=== PATIENT | female | born 1950 | race Caucasian/White ===

== ENCOUNTER → 2016-08-30 | Outpatient (CLI) | payer MEDICARE | LOC: RAD 08:35 | PROVIDERS: ATTEND Physician Assistant | DX: M51.36 Other intervertebral disc degeneration, lumbar region (principal); M48.06 Spinal stenosis, lumbar region | CPT/HCPCS: 72148; 82565 ==

== ENCOUNTER → 2017-06-18 | Outpatient (CLI) | payer MEDICARE ==
--- NOTE | 2017-06-18 15:30 | RADIOLOGY REPORT (SQ) ---
EXAM DESCRIPTION: MRI LUMBAR SPINE WITHOUT COMPLETED DATE/TIME: 06/18/2017 12:22 pm REASON FOR STUDY: PAIN IN RIGHT HIP/LUMBAR DISC DEGENERATION M25.551 PAIN IN RIGHT HIP M51.36 OTHE R INTERVERTEBRAL DISC DEGENERATION, LUMBAR REGION COMPARISON: 2017. TECHNIQUE: Sagittal and Axial imaging includes T1, T2, STIR and gradient echo sequences. Coronal T2/ HASTE imaging. LIMITATIONS: Mild limiting motion artifact. FINDINGS: VISUALIZED UPPER ABDOMEN: Limited evaluation. No acute or suspicious findings suggested. SEGMENTATION: No transitional anatomy. The lowest well-developed disc space is labeled L5-S1. ALIGNMENT: Scoliotic. Minimal grade 1 listhesis at L4-5. VERTEBRAE: Chronic compression fracture at L1, status post kyphoplasty. Post kyphoplasty changes are also suggested at L2. Vertebrae otherwise maintained. BONE MARROW: Low signal presumably related to kypho plasties at L1 and L2 within the vertebrae. No a cute fracture. No suspicious bone lesions. No evidence of marrow replacement. DISC SIGNAL: Multilevel disc disease with diminished signal and height loss. Relative preservation o f the L5-S1 disc. POSTERIOR ELEMENTS: Lower lumbar exuberant facet degenerative overgrowth at L4-5 and L5-S1. No over t pars defect. HARDWARE: None in the spine. CORD AND CONUS: Normal in size and signal intensity. Conus at the appropriate level. SOFT TISSUES: No aortic aneurysm seen. No bulky retroperitoneal adenopathy or mass. No paraspinal mas s or fluid. L1-L2: Broad disc osteophyte complex. Facet arthropathy. Mild-moderate central narrowing. At least moderate bilateral foraminal stenosis. L2-L3: Disc and facet disease with mild -moderate central stenosis. Relatively marked right foramina l narrowing. L3-L4: Broad disc bulge and facet arthropathy. Overall mild -moderate central narrowing with marked right foraminal stenosis. L4-L5: Slight degenerative listhesis. Exuberant facet arthropathy and posterior ligament thickening with severe central stenosis. Up to moderate foraminal narrowing. L5-S1: Facet overgrowth. Central canal relatively patent. Noncritical bilateral foraminal narrowing . LOWER THORACIC: Spondylosis at the visualized levels, incompletely assessed. It appears to be some s purring along the posterior T11 vertebral body with cord contact but no gross mass effect. SACRUM: Visualized upper sacrum intact. OTHER: No other significant findings. IMPRESSION: 1. Multilevel lumbar spondylosis with severe spinal stenosis at L4-5. TECHNICAL DOCUMENTATION: JOB ID: [id number] [employer]- All Rights Reserved
--- NOTE | 2017-06-18 15:34 | RADIOLOGY REPORT (SQ) ---
EXAM DESCRIPTION: MRIRLJ WO COMPLETED DATE/TIME: 06/18/2017 12:22 pm REASON FOR STUDY: PAIN IN RIGHT HIP/LUMBAR DISC DEGENERATION COMPARISON: None. TECHNIQUE: Noncontrast multiplanar MR imaging. Sequences include wide field of view pelvis and focu sed hip of interest. Fat sensitive, water sensitive, and cartilage sensitive sequences. Specific hip of interest: Right LIMITATIONS: None. FINDINGS: MARROW SIGNAL: Normal, no evidence of replacement, occult fracture or suspicious bone lesi on in the visualized lumbar spine, pelvis and proximal femurs. SPECIFIC HIP OF INTEREST: No effusion. Appropriate acetabular coverage. Normal sphericity of the fem oral head. No avascular necrosis or reactive marrow changes. Joint space relatively preserved. Pot ential anterior superior subtle labral tear. Minimal adjacent subchondral cysts in the acetabulum. No paralabral cyst. No regional mass, bursitis or muscle tear. OPPOSITE HIP: Normal. No effusion or other significant finding on limited sequences. REMAINDER OF THE OSSEOUS PELVIS: SI joints normal. Symphasis pubis intact. No Avulsion injury evide nt. INTRA- AND EXTRAPELVIC SOFT TISSUES: No intrapelvic mass or free fluid. Bladder normal. No extrapelv ic mass. No inguinal hernia or adenopathy. IMPRESSION: 1. Minimal suspected degenerative cartilage loss in the right hip with subtle subchondra l cysts. Probable anterior superior mild labral tear.
== END ==
LOC: RAD 10:33
PROVIDERS: ATTEND Physician Assistant
DX: M25.551 Pain in right hip (principal); M51.36 Other intervertebral disc degeneration, lumbar region
CPT/HCPCS: 72148

== ENCOUNTER → 2017-07-04 | Outpatient (CLI) | payer MEDICARE ==
--- NOTE | 2017-07-04 17:02 | RADIOLOGY REPORT (SQ) ---
EXAM DESCRIPTION: CT LUMBAR SPINE WITHOUT COMPLETED DATE/TIME: 07/04/2017 3:21 pm REASON FOR STUDY: M51.16 INTERVERTEBRAL DISC DISORDERS W RADICULOPATHY, LUMBAR REGION M51.16 INTERV ERTEBRAL DISC DISORDERS W RADICULOPATHY, LUMBAR COMPARISON: MRI dated 06/18/2017. TECHNIQUE: Axial images acquired through the lumbar spine without intravenous contrast. Images revi ewed with lung, soft tissue and bone windows. Reconstructed coronal and sagittal MPR images reviewe d. All images stored on PACS. All CT scanners at this facility use dose modulation, iterative reconstruction, and/or weight based d osing when appropriate to reduce radiation dose to as low as reasonably achievable (ALARA). [facility]: Dose Right [facility]: CareDose [facility]: Dose Right [facility]: Teradose 4D [facility]: [employer] RADIATION DOSE: CT Rad equipment meets quality standard of care and radiation dose reduction techniq ues were employed. CTDIvol: 28.3 mGy. DLP: 896 mGy-cm. mGy. LIMITATIONS: None. FINDINGS: SEGMENTATION: Normal. No transitional anatomy. ALIGNMENT: Mild S-shaped curvature. VERTEBRAL BODIES: Stable anterior wedge deformity of the L1 vertebral body. Kyphoplasty cement in th e L1 and L2 vertebral bodies. DISCS: Study limited by lack of intrathecal contrast. T11-T12: Dense calcification extending from the central posterior disc in a cephalad direction behin d the body of T11. Significant spinal stenosis at this level with impingement on the cord. T12-L1: No significant protrusions. No significant stenosis. L1-L2: Disc space narrowing with endplate sclerosis and vacuum change. Central disc protrusion with moderate central canal stenosis. L2-L3: Disc space narrowing with endplate sclerosis and vacuum change. Probable diffuse posterior di sc bulge. Moderate facet arthropathy. Mild spinal stenosis. L3-L4: Disc space narrowing with endplate sclerosis and vacuum change. Diffuse posterior annular dis c bulge. Moderate facet arthropathy. Moderate spinal stenosis. L4-L5: Diffuse posterior annular disc bulge. Severe facet arthropathy. Severe spinal stenosis. L5-S1: Diffuse posterior annular disc bulge. Severe facet arthropathy. Moderate spinal stenosis. PEDICLES, TRANSVERSE PROCESSES: No fractures. No dislocation. No acute findings. FACETS, POSTERIOR ELEMENTS: No fractures. No dislocation. No spinal stenosis. HARDWARE: None in the spine. VISUALIZED RIBS: No fractures. SOFT TISSUES: No significant or acute finding in adjacent soft tissues. OTHER: No other significant finding. IMPRESSION: 1. WEDGE COMPRESSION DEFORMITY OF THE L1 VERTEBRAL BODY. KYPHOPLASTY CEMENT IN THE L1 AND L2 VERTEBR AL BODIES. 2. MULTILEVEL DEGENERATIVE CHANGES DESCRIBED. OF NOTE IS SPINAL STENOSIS AND IMPINGEMENT OF THE D ISTAL CORD AT THE T11 LEVEL. TECHNICAL DOCUMENTATION: JOB ID: [id number] Quality ID # [id number]: Final reports with documentation of one or more dose reduction techniques (e.g., Au tomated exposure control, adjustment of the mA and/or kV according to patient size, use of iterative reconstruction technique) 2010 [employer]- All Rights Reserved Reading location - IP/workstation name: [email or web address]
--- NOTE | 2017-07-05 10:25 | RADIOLOGY REPORT (SQ) ---
EXAM DESCRIPTION: L SPINE W/FLEX/EXT COMPLETED DATE/TIME: 07/04/2017 3:47 pm REASON FOR STUDY: M51.16 INTERVERTEBRAL DISC DISORDERS W RADICULOPATHY, LUMBAR REGION M51.16 INTERV ERTEBRAL DISC DISORDERS W RADICULOPATHY, LUMBAR COMPARISON: None. NUMBER OF VIEWS: Seven views. TECHNIQUE: AP, lateral, obliques, flexion, extension, and sacral radiographic images acquired. LIMITATIONS: None. FINDINGS: There has been prior kyphoplasty at L1-L2. There is a mild convex left lower lumbar scoli osis. Disc space narrowing and osteophyte formation at multiple levels. No instability with flexion and extension. IMPRESSION: NO INSTABILITY ON FLEXION/EXTENSION. TECHNICAL DOCUMENTATION: JOB ID: [id number] [employer]- All Rights Reserved Reading location - IP/workstation name: [email or web address]
== END ==
LOC: RAD 16:21
PROVIDERS: ATTEND Specialist
DX: M54.16 Radiculopathy, lumbar region (principal)
CPT/HCPCS: 72114; 72131

== ENCOUNTER 2018-09-21 09:41 | Emergency (ER) | payer MEDICARE ==
[2018-09-21 10:12] LABS: ABSOLUTE BASOPHILS # (AUTO) 0.1 10^3/uL (0.0-0.2); ABSOLUTE EOSINOPHILS # (AUTO) 1.1 10^3/uL (0.0-0.6); ABSOLUTE LYMPHOCYTES (AUTO) 2.5 10^3/uL (0.5-4.7); ABSOLUTE MONOCYTES (AUTO) 0.8 10^3/uL (0.1-1.4); ABSOLUTE NEUT (AUTO) 6.8 10^3/uL (1.7-8.2); BASOPHILS % (AUTO) 0.6 % (0-2); EOSINOPHILS % (AUTO) 9.8 % (0-6); HEMATOCRIT 40.8 % (36.0-47.0); HEMOGLOBIN 13.2 g/dL (12.0-15.5); LYMPHOCYTES % (AUTO) 22.2 % (13-45); MEAN CORPUSCULAR HEMOGLOBIN 29.7 pg (27.0-33.4); MEAN CORPUSCULAR HGB CONC 32.3 g/dL (32.0-36.0); MEAN CORPUSCULAR VOLUME 92 fl (80-97); MONOCYTES % (AUTO) 6.7 % (3-13); PLATELET COUNT 315 10^3/uL (150-450); RED BLOOD COUNT 4.44 10^6/uL (3.72-5.28); RED CELL DISTRIBUTION WIDTH 13.9 % (11.5-14.0); SEGMENTED NEUTROPHILS % (AUTO) 60.7 % (42-78); TOTAL CELLS COUNTED % (AUTO) 100 %; WHITE BLOOD COUNT 11.2 10^3/uL (4.0-10.5)
[2018-09-21 10:18] LABS: ALANINE AMINOTRANSFERASE 20 U/L (9-52); ALBUMIN 3.8 g/dL (3.5-5.0); ALKALINE PHOSPHATASE 101 U/L (38-126); ANION GAP 11 (5-19); ASPARTATE AMINO TRANSFERASE 25 U/L (14-36); BILIRUBIN,DIRECT 0.4 mg/dL (0.0-0.4); BILIRUBIN,TOTAL 0.4 mg/dL (0.2-1.3); BLOOD UREA NITROGEN 33 mg/dL (7-20); CALCIUM 9.5 mg/dL (8.4-10.2); CARBON DIOXIDE 22 mmol/L (22-30); CHLORIDE 108 mmol/L (98-107); CREATINE KINASE 49 U/L (30-135); GLUCOSE 117 mg/dL (75-110); POTASSIUM 4.5 mmol/L (3.6-5.0); SODIUM 141.4 mmol/L (137-145); TOTAL PROTEIN 6.6 g/dL (6.3-8.2)
[2018-09-21 10:28] LABS: CREATINE KINASE MB 1.82 ng/mL (<4.55)
[2018-09-21 10:29] LABS: TROPONIN I < 0.012 ng/mL
[2018-09-21 10:57] LABS: APPEARANCE,URINE SLIGHTLY-CLOUDY; BILIRUBIN,URINE NEGATIVE (NEGATIVE); COLOR,URINE AMBER; GLUCOSE, URINE NEGATIVE (NEGATIVE); KETONES,URINE TRACE mg/dL (NEGATIVE); LEUKOCYTE ESTERASE,URINE TRACE (NEGATIVE); NITRITE,URINE POSITIVE (NEGATIVE); PROTEIN,URINE NEGATIVE (NEGATIVE); URINE SPECIFIC GRAVITY 1.026; UROBILINOGEN,URINE NEGATIVE mg/dL (<2.0)
[2018-09-21] MEDS ORDERED: NORMAL SALINE 1000 ML 1,000 ML IV ONE ×2 (11:02→12:05)
--- NOTE | 2018-09-21 11:02 | ER Document Report ---
Entered by ABAD GANN SCRIBE 09/21/18 1010 Acting as scribe for:SONIA GLEASON MD ED General - General Chief Complaint: Altered Mental Status Stated Complaint: ALTERED MENTAL STATUS Time Seen by Provider: 09/21/18 09:49 Primary Care Provider: DAY BALL MD [Primary Care Provider] - Follow up as needed Mode of Arrival: Ambulatory Information source: Patient Notes: Patient is a 68 year old female with chronic back pain (on pain management), type 2 diabetes presents to the emergency department via EMS due to altered mental status. According to nurse, patient took her grandson to the dentist when the employees at the dentist's office noticed the patient became lethargic and diaphoretic and proceeded to call EMS. Patient states she remembers taking her grandson to the dentist but does not remember much after that. She states she did not take any of her pain medication or diabetes medication this morning. EMS reports the patient was intermittently lethargic and would occasionally become alert. They proceeded to administer 1mg of narcan IV and a 400mL normal saline after which they state the patient became more alert. Patient's blood pressure was noted to be 86/51. Of note, patient is prescribed 120 tabs of 10 mg of Percocet (QID) and 60 tablets of 40 mg OxyContin (extended release, BID). Patient states she does not take this medication as prescribed and repeatedly states "I only take it as I need it, I don't take it everyday". Patient does fill the prescriptions monthly. TRAVEL OUTSIDE OF THE [place] IN LAST 30 DAYS: No - Related Data Allergies/Adverse Reactions: No Known Allergies Allergy (Unverified 09/21/18 09:48) Past Medical History - General Information source: Patient - Social History Smoking Status: Unknown if Ever Smoked Chew tobacco use (# tins/day): No Family History: Reviewed & Not Pertinent Endocrine Medical History: Reports: Hx Diabetes Mellitus Type 2 Past Surgical History: Reports: Hx Orthopedic Surgery - Lumbar fusion Review of Systems - Review of Systems Constitutional: See HPI EENT: No symptoms reported Cardiovascular: No symptoms reported Respiratory: No symptoms reported Gastrointestinal: No symptoms reported Genitourinary: No symptoms reported Female Genitourinary: No symptoms reported Musculoskeletal: No symptoms reported Hematologic/Lymphatic: No symptoms reported Neurological/Psychological: See HPI -: Yes All other systems reviewed and negative Physical Exam - Vital signs Vitals: Resp Pulse Ox 12 99 09/21/18 09:50 09/21/18 09:50 - Notes Notes: GENERAL: Alert, interacts well. No acute distress. HEAD: Normocephalic, atraumatic. EYES: Pupils equal, round, and reactive to light. Extraocular movements intact. ENT: Oral mucosa moist, tongue midline. NECK: Full range of motion. Supple. Trachea midline. LUNGS: Clear to auscultation bilaterally, no wheezes, rales, or rhonchi. No respiratory distress. HEART: Regular rate and rhythm. No murmurs, gallops, or rubs. ABDOMEN: Soft, non-tender. Non-distended. Bowel sounds present in all 4 quadran ts. No guarding, rigidity, or rebound. EXTREMITIES: Moves all 4 extremities spontaneously. No edema, radial and dorsalis pedis pulses 2/4 bilaterally. No cyanosis. NEUROLOGICAL: Alert and oriented x3. Normal speech. PSYCH: Normal affect, normal mood. SKIN: Warm, dry, normal turgor. No rashes or lesions noted. Course - Re-evaluation Re-evalutation: 09/21/18 11:03 The patient's lab work would suggest that she was somewhat dehydrated. Her BUN was 33. The UA was concentrated with 26 hyaline casts. She did respond to 400 mL but fluid bolus from EMS initially. We will give her additional IV fluids at this time. - Vital Signs Vital signs: Temp Pulse Resp BP Pulse Ox 17 143/102 H 98 09/21/18 10:01 09/21/18 10:01 09/21/18 10:01 - Laboratory Result Diagrams: 09/21/18 09:23 09/21/18 09:23 Laboratory results interpreted by me: 09/21/18 09/21/18 09/21/18 09:23 09:23 10:30 WBC 11.2 H Eosinophils % 9.8 H Absolute Eosinophils 1.1 H Chloride 108 H BUN 33 H Glucose 117 H Urine Ketones TRACE H Urine Nitrite POSITIVE H Ur Leukocyte Esterase TRACE H Discharge - Discharge Clinical Impression: Dehydration Hypotension Qualifiers: Hypotension type: unspecified hypotension type Qualified Code(s): I95.9 - Hypotension, unspecified Altered mental status Qualifiers: Altered mental status type: unspecified Qualified Code(s): R41.82 - Altered mental status, unspecified Condition: Stable Disposition: HOME, SELF-CARE Additional Instructions: Altered Mental Status An altered mental status is a change in the normal functioning of the brain. This alteration of function can range from minor decreased brain function with some forgetfulness and confusion to complete loss of consciousness and coma. There are many possible causes of an altered mental status and include brain injuries such as trauma or strokes, problems with oxygen supply to the brain, fever and infections of the brain and/or elsewhere in the body, metabolic abnor malities such as low or high blood sugar, overdoses or excessive medication ingestion, and mental and psychiatric illnesses. Sometimes the altered mental status resolves and a definite cause is not determined. If a cause for your altered mental status was found, it has likely been corrected. Your evaluation has not shown any condition that requires that you be admitted to the hospital. It is believed that you are safe to leave and return to your home. If you have a return of your symptoms, you should return for re-evaluation. Dehydration Dehydration can result from vomiting or diarrhea, fever, or decreased intake of fluids. If severe, hospitalization and intravenous fluids may be required. Most cases are treated at home with fluids by mouth. For the next 24 hours, drink lots of clear fluids. In mild cases, this can be soda pop or sports drinks. For more severe dehydration, the doctor may recommend special fluids such as Pedialyte or Lytren. Try to get three liters (3 quarts) of fluid per day. If vomiting occurs, continue to drink the fluids frequently (every 15 to 20 minutes), but in small amounts (one or two ounces). Depending on the type of dehydration, the doctor may prescribe antinausea medicine or potassium replacements. Call the doctor or return for re-examination if you become progressively weak, vomit repeatedly, or have other new symptoms. Hypotension Your blood pressure is low. Low blood pressure can make you feel weak, ligh theaded, and even make you pass out. Low blood pressure can be caused by dehydration or blood loss. Problems with the heart, kidneys, or blood vessels can cause hypotension. Certain medications can make your blood pressure abnormally low. Infection can lower blood pressure. In many cases, the person is totally healthy, but for unknown reasons, the blood pressure falls when they stand up. This is called benign orthostatic hypotension. The treatment of low blood pressure depends on the severity of the symptoms, and on the underlying cause. Sometimes it's not possible to identify a cause. At this time, it doesn't appear that the problem is serious enough to require hospitalization. Medicines that could be contributing to the problem can be withheld or reduced in dosage if your doctor approves. Get plenty of fluids. Eat a healthy diet. Be careful to stand up slowly. If you feel suddenly lightheaded or if your vision goes reynolds, sit or lie down at once. Don't drive or operate machinery until the symptoms are under control. Return or call the doctor if you develop fainting or severe dizziness, severe weakness, problems with vision, chest pain, shortness of breath, fever, or confusion. Your altered mental status and low blood pressure was most likely due to being dehydrated. The pain medications you take and your difficulty sleeping at night probably contributed to the altered mental status. You should be sure to get a good night sleep every night, and drink plenty of fluids throughout the day in the evening. You should not try to drive if you do not feel perfectly normal and awake and alert. Follow-up with your doctor if any further problems. RETURN TO THE EMERGENCY ROOM IF ANY NEW OR WORSENING SYMPTOMS. Referrals: DAY BALL MD [Primary Care Provider] - Follow up as needed Scribe Attestation: 09/21/18 11:04 I personally performed the services described in the documentation, reviewed and edited the documentation which was dictated to the scribe in my presence, and it accurately records my words and actions. I personally performed the services described in the documentation, reviewed and edited the documentation which was dictated to the scribe in my presence, and it accurately records my words and actions.
[2018-09-21 11:14] LABS: URINE AMPHETAMINES SCREEN NEGATIVE; URINE BARBITURATES SCREEN NEGATIVE; URINE BENZODIAZEPINES SCREEN UNCONFIRMED POSITIVE; URINE COCAINE SCREEN NEGATIVE; URINE MARIJUANA (THC) SCREEN NEGATIVE; URINE METHADONE SCREEN NEGATIVE; URINE PHENCYCLIDINE SCREEN NEGATIVE
[2018-09-21 13:06] VITALS: BP 113/64
--- NOTE | 2018-09-21 17:45 | EKG REPORT ---
SEVERITY:- NORMAL ECG - SINUS RHYTHM : Confirmed by: Lubna Ellison 21-Sep-2018 17:44:09
== END 2018-09-21 13:28 | disposition home or self-care (01) ==
LOC: ER 09:41
DX: I95.9 Hypotension, unspecified (principal); E86.0 Dehydration; R41.82 Altered mental status, unspecified; E11.9 Type 2 diabetes mellitus without complications; R53.83 Other fatigue; R61 Generalized hyperhidrosis; Z79.899 Other long term (current) drug therapy
CPT/HCPCS: 93005; 99285; 96360; 36415; 82553; 82962; 82550; 85025; 80053; 81001; 84484; 80307; 93010; J7030

== ENCOUNTER → 2020-05-24 | Outpatient (CLI) | payer MEDICARE ==
[~2020-05-24] MED LIST: COVID-19 VACCINE (PFIZER)/PF 30 MCG/0.3 ML VIAL IM ONE; EPINEPHRINE INJ/PF 1 MG/1 ML AMPULE IM PRN
--- OUTSIDE RECORDS SUMMARY | 2020-05-27 10:21 | XMS REPORT ---
:1950 [facility] [address] [place] [address] Care Team Providers Name Role Phone Bony Hudsonchris Walls Primary Care Physician Unavailable DO Thuy Perez Attending Clinician Unavailable DO Thuy Perez Attending Clinician Unavailable MD Joss Farooq Attending Clinician Unavailable MD Joss Farooq Attending Clinician Unavailable DO Thuy Perez Admitting Clinician Unavailable MD Joss Farooq Admitting Clinician Unavailable Allergies, Adverse Reactions, Alerts Allergy Allergy Status Severity Reaction(s) Onset Inactive Treating C omments Name Type Date Date Clinician alendronat Drug Active e1, 2 allergy Forteo3, 4 Drug Active allergy Prolia5, 6 Drug Active allergy Medications Ordered Filled Start Stop Current Ordering Indication Dosage Frequency Signature Comments Components Medication Medication Date Date Medication? Clinician (SIG) Name Name aspirin 81 2019-05 Yes 81mg 81 mg = 1 mg oral 0-12 tab(s), tablet, 10:05: PO, BID, # chewable 00 60 tab(s), 0 Refill(s), Pharmacy: [facility], 149.8, cm, 02/11/20 5:46:00 EDT, Height, 76.9, kg, 02/11/20 5:46:00 EDT, Weight Vitamin D3 2019-05 Yes 1000[iU 1,000 1000 intl 0-12 ] Intl_Unit( units (25 10:05: s) = 1 mcg) oral 00 tab(s), tablet PO, Daily, 0 Refill(s) citalopram 2019-05 Yes 40mg 40 mg = 1 40 mg oral 0-12 tab(s), tablet 10:05: PO, Daily, 00 # 30 tab(s), 0 Refill(s), Pharmacy: [facility], 149.8, cm, 02/11/20 5:46:00 EDT, Height, 76.9, kg, 02/11/20 5:46:00 EDT, Weight metFORMIN 2019-05 Yes 500mg 500 mg = 1 500 mg oral 0-12 tab(s), tablet 10:05: PO, qAM, # 00 30 tab(s), 0 Refill(s), Pharmacy: [facility], 149.8, cm, 02/11/20 5:46:00 EDT, Height, 76.9, kg, 02/11/20 5:46:00 EDT, Weight metoprolol 2019-05 Yes 50mg 50 mg = 1 succinate 0-12 cap(s), 50 mg oral 10:05: PO, QHS, # capsule, 00 30 cap(s), extended 0 release Refill(s), Pharmacy: [facility], 149.8, cm, 02/11/20 5:46:00 EDT, Height, 76.9, kg, 02/11/20 5:46:00 EDT, Weight Tylenol 325 2019-05 Yes 650mg 650 mg = 2 mg oral 0-12 tab(s), tablet 10:05: PO, q4h, 00 Pain, mild (Level 1-2), 0 Refill(s) Pepcid 20 2019-05 Yes 20mg 20 mg = 1 mg oral 0-12 tab(s), tablet 10:05: PO, BID, # 00 60 tab(s), 0 Refill(s), Pharmacy: [facility], 149.8, cm, 02/11/20 5:46:00 EDT, Height, 76.9, kg, 02/11/20 5:46:00 EDT, Weight Centrum 2019-05 Yes 11 1 tab(s), 0-12 PO, Daily, 10:05: 0 00 Refill(s) Lyrica 100 2019-05 Yes 100mg 100 mg = 1 mg oral 0-12 cap(s), capsule 10:05: PO, TID, # 00 90 cap(s), 0 Refill(s), Pharmacy: [facility], 149.8, cm, 02/11/20 5:46:00 EDT, Height, 76.9, kg, 02/11/20 5:46:00 EDT, Weight rOPINIRole 2019-05 Yes .25mg 0.25 mg = 0.25 mg 0-12 1 tab(s), oral tablet 10:05: PO, QHS, # 00 30 tab(s), 0 Refill(s), Pharmacy: [facility], 149.8, cm, 02/11/20 5:46:00 EDT, Height, 76.9, kg, 02/11/20 5:46:00 EDT, Weight oxyCODONE 2019-05 2020- No 10mg 10 mg = 1 10 mg oral 0-12 10-19 tab(s), tablet 10:05: 23:59 PO, q6h, 00 :00 as needed for pain, # 28 tab(s), 0 Refill(s), Pharmacy: [facility], 149.8, cm, 02/11/20 5:46:00 EDT, Height, 76.9, kg, 02/11/20 5:46:00 EDT, Weight gabapentin No 300mg 300 mg = 1 300 mg oral 3-28 cap(s), capsule 13:26: PO, Daily, 00 0 Refill(s) oxyCODONE No 1 to 2 10 mg oral 3-26 tabs, PO, tablet 09:26: q6h, as 00 needed for pain, 0 Refill(s) raNITIdine No 150mg 150 mg = 1 150 mg oral 3-26 tab(s), tablet 09:26: PO, BID, 00 Other: See Comments, PRN Vitamin D3 No 1000[iU 1,000 1000 intl 3-26 ] Internatio units oral 09:23: nal_Unit(s capsule 00 ) = 1 cap(s), PO, Daily metoprolol No 50mg 50 mg = succinate 3-26 0.5 100 mg oral 09:23: tab(s), tablet, 00 PO, QHS extended release [facility] No 11 1 tab(s), vitamin 3-26 PO, Daily 09:22: 00 raNITIdine Yes 1 QD raNITIdine HCl 150 MG -12 HCl 150 MG TABS 00:00: TABS TAKE 00 1 TABLET DAILY. Refills: 0 Start : 4Active Vitamin D Yes Vitamin D 1000 UNIT - 1000 UNIT CAPS 00:00: CAPS 1 00 tab. by mouth daily. Quantity: 30 Refills: 0 Start : 4Active Ocuvite-Lut Yes 1 QD Ocuvite-Jeannine ein Oral -12 tein Oral Capsule 00:00: Capsule 00 TAKE 1 CAPSULE DAILY. Quantity: 90 Refills: 3 Start : 4Active Metoprolol Yes 1 QD Metoprolol Tartrate 07-11 Tartrate 100 MG Oral 00:00: 100 MG Tablet 00 Oral Tablet TAKE 1 TABLET DAILY. Refills: 0 Start : 4Active metformin No 11 1 tab(s), 500 mg oral 7-26 PO, qAM, tablet 23:31: 180 tab(s) 42 citalopram No 11 1 tab(s), 40 mg oral 7-26 PO, Daily, tablet 23:28: 30 tab(s) 15 aspirin 81 No 11 1 tab(s), mg oral 7-26 PO, Daily, tablet 23:27: 30 tab(s) 46 metFORMIN Yes 1 QD metFORMIN HCl - 500 1-17 HCl - 500 MG Oral 00:00: MG Oral Tablet 00 Tablet TAKE 1 TABLET DAILY Quantity: 60 Refills: 0 Start : 9Active Imitrex 20 Yes Mimi Coreas Imitrex 20 MG/ACT 6-18 Jose De Jesus VICTORIA MG/ACT Nasal 00:00: Nasal Solution 00 Solution USE 1 SPRAY INTO ONE NOSTRIL NEEDED FOR MIGRAINE RELIEF, MAY REPEAT ONCE AFTER 2 HOURS. MAX - 40MG/DAY. Quantity: 1 Refills: 0 Mimi Dela Cruz MD Start : 7Active Aspirin 81 Yes 1 QD Aspirin 81 MG TABS 5-18 MG TABS 00:00: TAKE 1 00 TABLET DAILY. Refills: 0 Start : 7Active CeleXA 20 2004-05 Yes CeleXA 20 MG Oral 1-14 MG Oral Tablet 00:00: Tablet 00 take 2 tablets daily Refills: 0 Start : 5Active oxyCODONE Yes oxyCODONE HCl - 10 MG HCl - 10 Oral Tablet MG Oral Tablet Refills: 0 Active Problems Condition Condition Condition Status Onset Resolution Last Treatin g Comments Name Details Category Date Date Treatment Clinician Date Alteration Alteration Problem suspend Pr oblem in comfort: in comfort: ed added pain pain(Confir auto matic (finding) med)1 ally b y system based on initiati o n of the Alterati o n in comfort: Pain beti n of Care. At risk of At risk for Problem suspend P roblem infection infection(C ed ad ded (finding) onfirmed)2 aut omatic ally by system based on initiati o n of the At Risk for Infectio n Plan of Care. Dehydration Dehydration Problem suspend (disorder) (Confirmed) ed At risk for Fall Problem suspend Prob vinny falls risk(Confir ed adde d (finding) med)3 automa tic ally by system based on initiati o n of the Fall Ris k Plan of Care. Impaired Impaired Problem suspend Proble m mobility mobility(Co ed add ed (finding) nfirmed)4 auto matic ally by system based on initiati o n of the Bowel Dysfunct i on Plan of Care. Total Self -care Problem suspend Probl em self-care deficit(Con ed ad ded deficit firmed)5 automat ic (finding) ally b y system based on initiati o n of the Self Car e Deficit Plan of Care. Obesity Obesity Problem Active Disc Disc Problem Active degeneratio degeneratio n, lumbar n, lumbar Encounter Encounter Problem Active for for screening screening colonoscopy colonoscopy Diabetes Diabetes Problem Active mellitus mellitus Hyperlipide Hyperlipide Problem Active jovanna jovanna Benign Benign Problem Active colonic colonic polyp polyp Breast Breast Problem Active cancer cancer History of History of Problem Active breast breast cancer cancer Osteoporosi Osteoporosi Problem Active s without s without current current pathologica pathologica l fracture, l fracture, unspecified unspecified osteoporosi osteoporosi s type s type Hip Hip Problem Active fracture, fracture, left, left, sequela sequela Anemia due Anemia due Problem Active to blood to blood loss loss Hypertensio Hypertensio Problem Active n n Procedures Procedure Date / Time Performed Performing Clinician Devic e IM Nailing Hip (TFN) IPO (Left)1 2020-01-22 12:55:00 IM Nailing Hip (TFN) IPO (Left)1 2020-01-22 12:55:00 Laminectomy Lumbar Bony TP Fusion 2017-07-27 16:08:00 IPO (NA)2 Arthroscopy3 Lumpectomy4 Tonsillectomy Tubal ligation done Procedures not documented Results Test Description Test Time Test Comments Text Results Atomic Results Result Comments POC Glucose 2020-02-11 07:30:00 Test Item Value Reference Range Comments POC Glucose (test code = POC Glucose) Done Charted Whole Blood [id number] 05:43:00 Test Item Value Reference Range Comments Whole Blood Glucose (test code = Whole Blood 93 mg/dL 74- 106 Glucose) WBC,RBC,Hgb,Hct,MCV (MCV),MCH (HCH),MCHC (MCHC),RDW (RDW),Platelet,[id number] 05:32:00 Test Item Value Reference Range Comments WBC (test code = WBC) 6.9 1 4.8-10.8 RBC (test code = RBC) 3.17 1 4.20-5.40 Hgb (test code = Hgb) 9.3 1 12.0-16.0 Hct (test code = Hct) 31.1 % 38.0-47.0 MCV (MCV) (test code = MCV (MCV)) 98.1 fL 80-94 MCH (HCH) (test code = MCH (HCH)) 29.3 pg 27-34 MCHC (MCHC) (test code = MCHC (MCHC)) 29.9 % 31.5-36.0 RDW (RDW) (test code = RDW (RDW)) 19.3 % 11.5-14.5 Platelet (test code = Platelet) 488 1 130-400 MPV (test code = MPV) 9.3 fL 7.4-10.4 BUN,Sodium Lvl,Potassium Lvl,Chloride,CO2,Glucose Lvl,Creatinine,Calcium Lvl,BUN/CR Ratio,Anion Gap,2020-02-11 05:32:00 Test Item Value Reference Range Comments BUN (test code = BUN) 20 mg/dL 9-23 Sodium Lvl (test code = Sodium Lvl) 143 mmol/L 136-145 Potassium Lvl (test code = Potassium Lvl) 4.1 mmol/L 3.4-5. 1 Chloride (test code = Chloride) 108 mmol/L 98-107 CO2 (test code = CO2) 28.0 mmol/L 20-31 Glucose Lvl (test code = Glucose Lvl) 87 mg/dL 74-106 Creatinine (test code = Creatinine) 0.81 mg/dL 0.55-1.02 Calcium Lvl (test code = Calcium Lvl) 9.0 mg/dL 8.7-10.4 BUN/CR Ratio (test code = BUN/CR Ratio) 25 Anion Gap (test code = Anion Gap) 7 4-18 Calc Osmol (test code = Calc Osmol) 287 1 GFR Non (test code = GFR Non >60.00 ) GFR (test code = GFR >60.00 Polish) UA Spec Grav,UA Color,UA Appear,UA Glucose,UA Bili,UA Ketones,UA Blood,UA pH,UA Protein,UA [id number] 17:05:00 Test Item Value Reference Range Comments UA Spec Grav (test code = UA Spec Grav) 1.015 UA Color (test code = UA Color) YELLOW UA Appear (test code = UA Appear) CLEAR UA Glucose (test code = UA Glucose) NEGATIVE UA Bili (test code = UA Bili) NEGATIVE UA Ketones (test code = UA Ketones) NEGATIVE UA Blood (test code = UA Blood) NEGATIVE UA pH (test code = UA pH) 6.5 5.0-9.0 UA Protein (test code = UA Protein) NEGATIVE 0-30 UA Urobilinogen (test code = UA Urobilinogen) 4.0 1 0. 2-1.0 UA Nitrite (test code = UA Nitrite) NEGATIVE UA Leuk Est (test code = UA Leuk Est) NEGATIVE Urine [id number] 17:05:00 Test Item Value Reference Range Comments Urine Culture (test code = Urine Culture) NO GROWTH 2 DAYS Neutro Percent,Lymph Percent,Kane Percent,Eos Percent,Basophil Percent,Neut Absolute,Lymphs [id number] 05:14:00 Test Item Value Reference Range Comments Neutro Percent (test code = Neutro Percent) 58.8 % 34.6 -71.4 Lymph Percent (test code = Lymph Percent) 26.7 % 19.6-5 2.7 Kane Percent (test code = Kane Percent) 10.2 % 2.4-11.8 Eos Percent (test code = Eos Percent) 2.9 % 0-7.8 Basophil Percent (test code = Basophil Percent) 0.5 % 0-1.8 Neut Absolute (test code = Neut Absolute) 5.0 1 1.8-7. 3 Lymphs Absolute (test code = Lymphs Absolute) 2.3 1 1. 5-4.0 Kane Absolute (test code = Kane Absolute) 0.9 1 0.2-1. 0 Eos Absolute (EOSA) (test code = Eos Absolute (EOSA)) 0.3 1 0-0.7 Baso Absolute (BASOA) (test code = Baso Absolute 0.0 1 0.0-0.2 (BASOA)) Hct,[id number] 09:11:00 Test Item Value Reference Range Comments Hct (test code = Hct) 23.2 % 38.0-47.0 Hgb (test code = Hgb) 7.2 1 12.0-16.0 POC [id number] 07:30:00 Test Item Value Reference Range Comments POC Glucose (test code = POC Glucose) Done Charted Whole Blood [id number] 07:04:00 Test Item Value Reference Range Comments Whole Blood Glucose (test code = Whole Blood 102 mg/dL 74- 106 Glucose) [id number] 09:03:00 Test Item Value Reference Range Comments Crossmatch (test code = CROSSMATCH I43994 Date Crossmatch) Specimen Received By Lab: @[id number] BLOOD COMPONENT TYPE RED CELL GROUP NUMBER OF UNITS ORDERED 1 ARM BAND NUMBER [id number] ABO/RH(D) O ABO/RH(D) POSITIVE ANTIBODY SCREEN NEGATIVE CROSSMATCH EXPIRATION 01/30/2020 Called to. [facility] 9.27.20 @1000 UNIT NUMBER [id number] BLOOD COMPONENT TYPE LEUKO-POOR RED CELLS UNIT DIVISION 00 STATUS OF UNIT ALLOCATED TRANSFUSION STATUS OK TO TRANSFUSE CROSSMATCH RESULT Electronically Compatible [id number] 09:03:00 Test Item Value Reference Range Comments Phosphorus (test code = Phosphorus) 3.4 mg/dL 2.4-5.1 WBC,Neutro Percent,Lymph Percent,Kane Percent,Eos Percent,Basophil Percent,Neut Absolute,Lymphs [id number] 01:10:00 Test Item Value Reference Range Comments WBC (test code = WBC) 7.3 1 4.8-10.8 Neutro Percent (test code = Neutro Percent) 52.1 % 34.6 -71.4 Lymph Percent (test code = Lymph Percent) 30.8 % 19.6-5 2.7 Kane Percent (test code = Kane Percent) 10.4 % 2.4-11.8 Eos Percent (test code = Eos Percent) 5.6 % 0-7.8 Basophil Percent (test code = Basophil Percent) 0.7 % 0-1.8 Neut Absolute (test code = Neut Absolute) 3.8 1 1.8-7. 3 Lymphs Absolute (test code = Lymphs Absolute) 2.2 1 1. 5-4.0 Kane Absolute (test code = Kane Absolute) 0.8 1 0.2-1. 0 Eos Absolute (EOSA) (test code = Eos Absolute 0.4 1 0- 0.7 (EOSA)) Baso Absolute (BASOA) (test code = Baso Absolute 0.1 1 0.0-0.2 (BASOA)) RBC (test code = RBC) 2.37 1 4.20-5.40 MCV (MCV) (test code = MCV (MCV)) 92.4 fL 80-94 MCH (HCH) (test code = MCH (HCH)) 28.7 pg 27-34 MCHC (MCHC) (test code = MCHC (MCHC)) 31.1 % 31.5-36.0 RDW (RDW) (test code = RDW (RDW)) 15.9 % 11.5-14.5 Platelet (test code = Platelet) 256 1 130-400 MPV (test code = MPV) 10.2 fL 7.4-10.4 BUN,Sodium Lvl,Potassium Lvl,Chloride,CO2,Glucose Lvl,Creatinine,Calcium Lvl,BUN/CR Ratio,Anion Gap,2020-01-27 01:10:00 Test Item Value Reference Range Comments BUN (test code = BUN) 19 mg/dL 9-23 Sodium Lvl (test code = Sodium Lvl) 140 mmol/L 136-145 Potassium Lvl (test code = Potassium Lvl) 3.9 mmol/L 3.4-5. 1 Chloride (test code = Chloride) 107 mmol/L 98-107 CO2 (test code = CO2) 31.0 mmol/L 20-31 Glucose Lvl (test code = Glucose Lvl) 96 mg/dL 74-106 Creatinine (test code = Creatinine) 0.81 mg/dL 0.55-1.02 Calcium Lvl (test code = Calcium Lvl) 8.6 mg/dL 8.7-10.4 BUN/CR Ratio (test code = BUN/CR Ratio) 23 Anion Gap (test code = Anion Gap) 2 4-18 Calc Osmol (test code = Calc Osmol) 281 1 GFR Non (test code = GFR Non >60.00 ) GFR (test code = GFR >60.00 Polish) Magnesium [id number] 01:10:00 Test Item Value Reference Range Comments Magnesium Lvl (test code = Magnesium Lvl) 1.8 mg/dL 1.60-2 .60 UA Spec Grav,UA Color,UA Appear,UA Glucose,UA Bili,UA Ketones,UA Blood,UA pH,UA Protein,UA [id number] 14:14:00 Test Item Value Reference Range Comments UA Spec Grav (test code = UA Spec Grav) 1.017 UA Color (test code = UA Color) LT YELLOW UA Appear (test code = UA Appear) CLEAR UA Glucose (test code = UA Glucose) NEGATIVE UA Bili (test code = UA Bili) NEGATIVE UA Ketones (test code = UA Ketones) TRACE UA Blood (test code = UA Blood) NEGATIVE UA pH (test code = UA pH) 5.5 5.0-9.0 UA Protein (test code = UA Protein) NEGATIVE 0-30 UA Urobilinogen (test code = UA Urobilinogen) NEGATIVE 0. 2-1.0 UA Nitrite (test code = UA Nitrite) NEGATIVE UA Leuk Est (test code = UA Leuk Est) NEGATIVE Urine [id number] 14:14:00 Test Item Value Reference Range Comments Urine Culture (test code = 4000 ORGANISMS/ML ESCHERICHIA 07326-7) COLI ESCHERICHIA COLI (test code = ESCHERICHIA COLI ESCHERICHIA COLI) UA RBC,UA WBC,UA Mucous,UA Hyaline [id number] 06:25:00 Test Item Value Reference Range Comments UA RBC (test code = UA RBC) 1 1 UA WBC (test code = UA WBC) 5 1 UA Mucous (test code = UA Mucous) TRACE UA Hyaline Cast (test code = UA Hyaline Cast) OCCASIONAL Bili Total,Alk Phos,AST,ALT,Total Protein,Albumin Lvl,Globulin,Albumin/Globulin [id number] 02:58:00 Test Item Value Reference Range Comments Bili Total (test code = Bili Total) 0.2 mg/dL 0.2-1.2 Alk Phos (test code = Alk Phos) 89 1 46-116 AST (test code = AST) 17 1 15-34 ALT (test code = ALT) 8 1 10-49 Total Protein (test code = Total Protein) 5.6 1 5.7-8. 2 Albumin Lvl (test code = Albumin Lvl) 3.1 1 3.4-5.0 Globulin (test code = Globulin) 2.5 1 1.5-4.5 Albumin/Globulin Ratio (test code = 1.2 1.1-1.8 Albumin/Globulin Ratio) [id number] 00:42:00 Test Item Value Reference Range Comments MRSA-PCR (test code = NEGATIVE Result Com ment: MRSA SCREEN- MRSA MRSA-PCR) SCREEN-A positiv e test result does not necessa rily indicate the presence of viab le organisms but is presumptive f or MRSA. MRSA SCREEN-Results s hould be used to identify patient s needing enhanced precaut ions and should not be used to g uide or monitor treatment for MR SA infections. Retic Count Absolute,Retic Percent,Retic [id number] 22:28:00 Test Item Value Reference Range Comments Retic Count Absolute (test code = Retic Count 0.0443 1 0. 0300-0.1200 Absolute) Retic Percent (test code = Retic Percent) 1.18 % 0.7-2. 6 Retic Index (test code = Retic Index) 14.00 % 3.0-15.9 Iron,TIBC,Iron Sat,Unsaturated [id number] 22:28:00 Test Item Value Reference Range Comments Iron (test code = Iron) 34 1 50-170 Result C omment: Patient s treated with metal-binding dr ugs (e.g. deferoxamine) zelda srivastava have depressed iron v alues, as chelated iron zelda srivastava not properly react in the iro n assay. TIBC (test code = TIBC) 336 1 250-425 Iron Sat (test code = Iron Sat) 10 % 15-55 Unsaturated IBC (test code = 302 1 150-375 Unsaturated IBC) [id number] 22:28:00 Test Item Value Reference Range Comments Ferritin (test code = Ferritin) 5 ng/mL 7.3-270.7 Vitamin B12 Level -,Folate Level -2020-01-21 22:28:00 Test Item Value Reference Range Comments Vitamin B12 Level - (test 2530 pg/mL 211-911 Result Comment: VITAMIN code = Vitamin B12 Level -) B12- RECHECKED BY DILUTION Folate Level - (test code = 10.2 ng/mL Resu lt Comment: Folate Level -) Inde terminate: 3.4 to 5.4 Defic ient: <3.4 [id number] 22:28:00 Test Item Value Reference Range Comments TSH (test code = TSH) 2.38 1 0.55-4.78 Sed [id number] 22:28:00 Test Item Value Reference Range Comments Sed Rate (test code = Sed Rate) 9 mm/h 0-30 ID NOW Covid [id number] 12:40:00 Test Item Value Reference Range Comments ID NOW Covid 19 (test COVID-19 NEGATIVE Result C omment: ID NOW code = ID NOW Covid COVID1-Th is result does 19) not rule out co- infections with other patho gens. False negative results may occur if a specimen is im properly collected, trans ported or handled. False n egative results may also occur if amplification in hibitors are present in the s pecimen or if inadequate level s of viruses are present in t he specimen. Negative results should be considered in th e context of a patient's rece nt exposures, history and the presence of clinical signs a nd symptoms consistent with COVID-1. This assay is only in tended for use under the od and Drug Administration's (FDA) Emergency Use Authorization(EU A). Terms of use require that the following Fact S heets be provided with th is test report: --[facility] ID NOW COVID 1 f or Providers --[facility] ID NOW COVID 1 for Yuli ents These Fact Sheets can be accessed at: [email or web address] -[email or web address] Type and Screen (Convertible)2020-01-21 12:40:00 Test Item Value Reference Range Comments Type and Screen TYPE AND SCREEN (CONVERTIBLE) (Convertible) (test code = F59140 Date Specimen Received By Type and Screen Lab: @1254 BLOOD (Convertible)) COMPONENT TYPE RED CELL GROUP NUMBER OF UNITS ORDERED 1 CROSSMATCH EXPIRATION 01/24/2020 ABO/RH(D) O ABO/RH(D) POSITIVE ANTIBODY SCREEN NEGATIVE TS CONVERTED TO XM CONVERTED TO CROSSMATCH ARM BAND NUMBER [id number] TYSC TO CXM TYSC TO CXM UNIT NUMBER [id number] BLOOD COMPONENT TYPE LEUKO-POOR RED CELLS UNIT DIVISION 00 STATUS OF UNIT TRANSFUSED TRANSFUSION STATUS OK TO TRANSFUSE CROSSMATCH RESULT Electronically Compatible PT,[id number] 10:38:00 Test Item Value Reference Range Comments PT (test code = PT) 11.0 s 9.7-11.3 INR (test code = INR) 1.0 0.9-1.1 [id number] 10:38:00 Test Item Value Reference Range Comments PTT (test code = PTT) <21.7 22.5-28.6 SARS-CoV-2 RdRp Resp QI [id number] 00:00:00 Test Item Value Reference Range Comments SARS-CoV-2 RdRp Resp QI Negative [place] Covid Public [facility] Case ID: YNAI+probe (test code = COVID_103 [id number]) Assessments Condition Name Status Diagnosis Date Treating Clinici an Displaced intertrochanteric fracture of left Active 0 femur, initial encounter for closed fracture Breast cancer Active History of breast cancer Active Osteoporosis without current pathological Active fracture, unspecified osteoporosis type Encounters Start End Encounter Admission Attending Care Care Encounter Date/Time Date/Time Type Type Clinicians Facility Department ID 2020-01-28 2020-02-11 I E Giancarlo Perez [facility] [id number] 11:54:06 15:10:00 Giancarlo Perez 2020-01-21 2020-01-28 I Vahid Hernandez [facility] [id number] 10:30:49 11:45:00 Vahid Farooq 2019-03-01 2019-[id number] 09:00:00 09:00:00 ; Theresa Escobedo M.D. 2019-02-08 2019-02-08 [facility] [id number] 11:00:00 11:00:00 ; Theresa Escobedo M.D. 2018-02-01 2018-02-01 Appointment [facility] [id number] 10:20:00 10:20:00 ; Theresa Escobedo M.D. Family History Family Member Diagnosis Comments Start Date Stop Date Grandfather Family history of Diabetes Mother Family history of Diabetes Father Family history of Diabetes Father Family history of Heart attack Payers Payer Name Policy Type Policy Number Effective Date Expiration D ate Social History Smoking Status Start Date Stop Date Never smoked tobacco (finding) 2020-01-02 8 12:56:14 Social History Observation Description Sex Female Vital Signs Vital Name Observation Time Observation Value Comments Temperature Oral 2020-02-11 15:04:00 36.7 Lauren Peripheral Pulse Rate 2020-02-11 15:04:00 77 /min Respiratory Rate 2020-02-11 15:04:00 18 /min Systolic Blood Pressure 2020-02-11 15:04:00 103 mm[Hg] Diastolic Blood Pressure 2020-02-11 15:04:00 63 mm[Hg] Temperature Oral 2020-02-11 04:00:00 36.9 Lauren Peripheral Pulse Rate 2020-02-11 04:00:00 65 /min Respiratory Rate 2020-02-11 04:00:00 16 /min Systolic Blood Pressure 2020-02-11 04:00:00 126 mm[Hg] Diastolic Blood Pressure 2020-02-11 04:00:00 61 mm[Hg] Systolic Blood Pressure 2020-02-10 20:53:18 122 mm[Hg] Diastolic Blood Pressure 2020-02-10 20:53:18 65 mm[Hg] Peripheral Pulse Rate 2020-02-10 20:00:00 80 /min Temperature Oral 2020-02-10 16:00:00 36.4 Lauren Respiratory Rate 2020-02-10 16:00:00 18 /min Respiratory Rate 2020-01-28 08:00:00 18 /min Systolic Blood Pressure 2020-01-28 08:00:00 132 mm[Hg] Diastolic Blood Pressure 2020-01-28 08:00:00 49 mm[Hg] Temperature Oral 2020-01-28 08:00:00 36.8 Lauren Peripheral Pulse Rate 2020-01-28 08:00:00 70 /min Temperature Oral 2020-01-28 04:00:00 37.0 Lauren Peripheral Pulse Rate 2020-01-28 04:00:00 75 /min Respiratory Rate 2020-01-28 04:00:00 18 /min Systolic Blood Pressure 2020-01-28 04:00:00 139 mm[Hg] Diastolic Blood Pressure 2020-01-28 04:00:00 73 mm[Hg] Peripheral Pulse Rate 2020-01-28 00:00:00 69 /min Respiratory Rate 2020-01-28 00:00:00 16 /min Systolic Blood Pressure 2020-01-28 00:00:00 109 mm[Hg] Diastolic Blood Pressure 2020-01-28 00:00:00 37 mm[Hg] Temperature Oral 2020-01-27 20:00:00 36.5 Lauren Heart Rate Monitored 2020-01-25 12:00:00 77 /min Heart Rate Monitored 2020-01-23 20:00:00 107 /min Heart Rate Monitored 2020-01-23 16:00:00 116 /min Temperature Axillary 2020-01-22 19:00:00 36.5 Lauren Temperature - Temporal Artery 2020-01-22 15:50:00 36.7 Lauren Temperature Tympanic 2020-01-22 14:15:00 36.9 Lauren Temperature - Temporal Artery 2020-01-22 10:45:00 36.5 Lauren Hospital Discharge Instructions Patient Cvkjixwoh39/12/2020 11:08:12Hip FractureHip FractureA hip fracture is a break in the upper part of the thigh bone (femur). This is usually the result of an injury, commonly a fall.What are the causes?This condition may be caused by: A direct hit or injury (trauma) to the side of the hip, such as from a fall or a car accident.What increases the risk?You are more likely to develop this condition if: You have poor balance or an unsteady walking pattern (gait). Certain conditions contribute to poor balance, including Parkinson disease and dementia. You have thinning or weakening of your bones, such as from osteopenia or osteoporosis. You have cancer that spreads to the leg bones. You have certain conditions that can weaken your bones, such as thyroid disorders, intestine disorders, or a lack (deficiency) of certain nutrients. You smoke. You take certain medicines, such as steroids. You have a history of broken bones.What are the signs or symptoms?Symptoms of this condition include: Pain over the injured hip. This is commonly felt on the side of the hip or in the front groin area. Stiffness, bruising, and swelling over the hip. Pain with movement of the leg, especially lifting it up. Pain often gets better with rest. Difficulty or inability to stand, walk, or use the leg to support body weight (put weight on the leg). The leg rolling outward when lying down. The affected leg being shorter than the other leg.How is this diagnosed?This condition may be diagnosed based on: Your symptoms. A physical exam. X-rays. These may be done: To confirm the diagnosis. To determine the type and location of the fracture. To check for other injuries. MRI or CT scans. These may be done if the fracture is not visible on an X-ray.How is this treated?Treatment for this condition depends on the severity and location of your fracture. In most cases, surgery is necessary. Surgery may involve: Repairing the fracture with a screw, nail, or rodto hold the bone in place (open reduction and internal fixation, ORIF). Replacing the damaged parts of the femur with metal implants (hemiarthroplasty or arthroplasty).If your fracture is less severe, or if you are not eligible for surgery, you may have non-surgical treatment. Non-surgical treatment may involve: Using crutches, a walker, or a wheelchair until your health care provider says thatyou can support (bear) weight on your hip. Medicines to help reduce pain and swelling. Having regular X-rays to monitor your fracture and make sure that it is healing. Physical therapy. You may need physical therapy after surgery, too.Follow these instructions at home:Activity Do not use your injured leg to support your body weight until your health care provider says that you can. Follow standing and walking restrictions as told by your health care provider. Use crutches, a walker, or a wheelchair as directed. Avoid any activities that cause pain or irritation in your hip. Askyour health care provider what activities are safe for you. Do not drive or use heavy machinery until your health care provider approves. If physical therapy was prescribed, do exercises as told by your health care provider.General instructions Take tnvv-ctx-dphbuqi and prescription medicinesonly as told by your health care provider. If directed, put ice on the injured area: Put ice in a plastic bag. Place a towel between your skin and the bag. Leave the ice on for 20 minutes, 23 times a day. Do not use any products that contain nicotine or tobacco, such as cigarettes and e-cigarettes. These can delay bone healing. If you need help quitting, ask your health care provider. Keep all follow-up visits as told by your health care provider. This is important.How is this prevented? To prevent falls at home: Use a cane, walker, or wheelchair as directed. Make sureyour rooms and hallways are free of clutter, obstacles, and cords. Install grab bars in your bedroom and bathrooms. Always use handrails when going up and down stairs. Use nightlights around the house. Exercise regularly. Ask what forms of exercise are safe for you, such as walking and strength and balance exercises. Visit an eye doctor regularly to have your eyesight checked. This canhelp prevent falls. Make sure you get enough calcium and vitamin D. Do not use any products that contain nicotine or tobacco, such as cigarettes and e-cigarettes. If you need help quitting, ask your health care provider. Limit alcohol use. If you have an underlying condition that caused your hip fracture, work with your health care provider to manage your condition.Contact a health care pr ovider if: Your pain gets worse or it does not get better with rest or medicine. You develop any of the following in your leg or foot: Numbness. Tingling. A change in skin color (discoloration). Skin feeling cold to the touch.Get help right away if: Your pain suddenly gets worse. You cannot move your hip.Summary A hip fracture is a break in the upper part of the thigh bone (femur). Treatment typically require surgical management to restore stability and function to the hip. Pain medicine and icing of the affected leg can help manage pain and swelling. Follow directions as told by your health care provider.This information is not intended to replace advice given to you by your health care provider. Make sure you discuss any questions you have with your health care provider.Document Released: 04/18/2006 Document Revised: 01/06/2019 Document Reviewed: 05/21/2017Del[employer] Interactive Patient Education ? 2019 [employer].02/11/2020 11:08:12[facility] Patient Safety: A Guide to Preventing Falls in the Hospital (Custom)[facility] Patient InformationPatient Safety: A Guide to Preventing Falls in the HospitalThe [facility] CenterPatient InformationPatient Safety:A Guide to Preventing Fallsin the HospitalOriginal Date: 09/30/06Department: Nursing 1Why is it important to prevent falls?A fall can occur while you are in the hospital. Falls and their associated complications can prolong your hospital stay and your recovery.Who is at risk for falls?Anyone can fall. Falls can occur in any age group; at any time and in any place.Why do people who arein the hospital fall? Illness, surgery, tests or treatments can make you weak orunsteady. Medicines can make you dizzy or confused. Medical equipment, such as infusion pumps, oxygen, or tubes,can make it difficult to move without help. Lack of sleep and unfamiliar surroundings can affect your judgment.What illnesses or conditions make you unsteady on your feet or at risk for injury due to fall? Poor vision/hearing Poor nutrition/dehydration Difficulty in walking Recent surgery or sedation Muscle weakness Pain medication effects Poor bowel/bladder control Medication reactions Dizziness At risk for bleeding Low blood pressure At risk for fracture Low blood sugar Advanced age (>80) SeizuresWhat will the staff do to help keep me from falling? Staff members will: Ask about you history of falls before coming to thespital to assess you risk to fall. Post colored cards to alert other staff if you are at moderate or high risk for a fall. [place] you to your new surroundings. Place call colunga and needed objects within your reach. Answer your call colunga as soon as possible. Help you get in /out of bed and with toileting, asneeded. Provide adequate lighting, especially at night. Provide non-skid footwear. Keep theenvironment free of unneeded equipment, furniture or clutter.[facility] [place] Order Number - [id number] [facility]Patient InformationPatient Safety:A Guide to Preventing Fallsin the HospitalOriginal Date:09/30/06Department:Nursing12/22/10How can I keep from falling? Tell your nurse if you have a history of falls. Use the call colunga to ask for help before trying to get out of bed or going to the bathroom. Make sure the call colunga and other needed items are within reach before family or staff members leave your room. After calling for help, stay where you are and wait for staff to come and help you. When getting out of bed, sit on the side of the bed before standing. Stand slowlysince some medications or conditions can make you dizzy when you change positions. When finished in the bathroom, use the call colunga and wait for staff to assist you back to your bed. Wear non-skid footwear, shower shoes, and use equipment that has been provided for your safety. Do not use IV poles or furniture with wheels for support while you are walking.How can my family/loved ones help tokeep me from falling? Tell the nurse if you have a history of falls. Check with a nurse beforegetting you in/out of bed, or to the bathroom. Remind you to call for help before getting out of bed or going to the bathroom. Place call colunga and other needed items within your reach before leaving the room. If you are forgetful or confused, remind you of your surroundings and alert the staff when they leave your bedside. Do not tamper with any alarms or equipment that is in use to alertthe nurse if you attempt to get up without asking for help. Inform the nurse if there are any routines that can help to prevent falls and keep you safe.[facility] [place] Order Number - [id number] 11:08:12[facility] Patient Safety: A Guide to Preventing Falls at Home (Custom)[facility] Patient InformationPatient Safety: A Guide to Preventing Falls at HomeThe [facility] Patient InformationOriginal Date: 11/18/05 Revised date: 12/22/10Patient Safety: A Guide to Preventing Falls At Home Why is it important to prevent falls?Falls and the complications associated with falls are one of the most serious health problems facing the elderly. Preventing a fall is important to maintaining an active and independent lifestyle.Who is at risk for falls?Anyone can fall. No one wants tofall. Falls can occur in any age group; at any time and at any place. A fall can be a very serious and life threatening event for any person age 64 or older.Why do people fall?An unsafe environment maycause falls. An illness or physical condition may affect your strength and balance, making you more likely to fall. Some environmental factors that may cause falls are: Wet floors Loose carpets, tiles and throw rugs Equipment in halls or walkways Poor lighting Waxed floors Poor fitting or inadequate footwear Inappropriate use of assistive devices, canes, walkers, andwheelchairs Any other object at the floor level that a person can trip or slip onWhat illnesses or conditions make you unsteady on your feet or at risk for injury due to fall?Illness or conditions that may make you unsteady on your feet are: Poor vision/hearing Poor gait/mobility Muscle weakness Incontinence Syncope (dizziness) Low blood pressureLow blood sugar Seizures Poor nutrition/dehydration Medication reactions At risk for bleeding At risk for fractures Advanced age (>80)[facility] [place] Order Number - [id number] [facility] Patient InformationOriginal Date: 11/18/05 Revised date: 12/22/10Patient Safety: A Guide to Preventing Falls At Home What should I tell my doctor? See your doctor as prescribed. See your eye doctor yearly. Tell your doctor if you have fallen and describe the circumstancesofthefall(s). Tell your doctor if you use any walkeraids, such as a cane or awalker. Tell your doctor about any vision problems and any other medicalproblems you may have. Tell you doctor if you have any side effects from yourmedications. Take good care of your feet. Let your doctor know if you are taking laxatives.How can I make home safe? When getting out of bed, sit on the side of the bed before standingup. Place grab bars securely mounted in bathrooms around toilets,bath tubs, and shower areas. Place hand rails on both sides of stairwells. Make sure your home is well lit. Use night-lights in the bedroom, bathroom, hallways andstairways. Remove throw rugs, or fasten them to the floor carpet tape. Tack down carpetedges. Remove loose tiles. Remove electrical cords from pathways.Be sure to tell your doctor about all medications you are taking.Adapted from: Preventing Falls: Instructions for Patients and Families; [facility], September 2000 A Patient's Guide to Preventing Falls, [employer] SocietyStandard [place] Order Number - [id number] 11:08:12Fall Prevention in Hospitals,AdultFall Prevention in Hospitals, AdultBeing a patient in the hospital puts you at risk for falling. Falls can cause serious injury and harm, but they can be prevented. It is important to understand what puts you at risk for falling and what you and your health care team can do to prevent you from falling. If you or a loved one falls at the hospital, it is important to tell hospital staff about it.What increases the risk for falls?Certain conditions and treatments may increase your risk of falling in the hospital. These include: Being in an unfamiliar environment, especially when using the bathroom at night. Having surgery. Being on bed rest. Taking many medicines or certain types of medicines, such as sleeping pills. Having tubes in place, such as IV lines or catheters.Other riskfactors for falls in a hospital include: Having difficulty with hearing or vision. Having a change in thinking or behavior, such as confusion. Having depression. Having trouble with balance. Being a male. Feeling dizzy. Needing to use the toilet frequently. Having fallen duringthe past three months. Having low blood pressure.What are some strategies for preventing falls?Ifyou or a loved one has to stay in the hospital: Ask about which fall prevention strategies will be in place. Do not hesitate to speak up if you notice that the fall prevention plan has changed. Ask for help moving around, especially after surgery or when feeling unwell. If you have been askedto call for help when getting up, do not get up by yourself. Asking for help with getting up is for your safety, and the staff is there to help you. Wear nonskid footwear. Get up slowly, and sit at the side of the bed for a few minutes before standing up. Keep items you need, such as the nurse call button or a phone, close to you so that you do not need to reach for them. Wear eyeglasses or hearing aids if you have them. Have someone stay in the hospital with you or your loved one.Ask if sleeping pills or other medicines that can cause confusion are necessary.What does the hospital staff do to help prevent falls?Hospitals have systems in place to prevent falls and accidents, which may involve: Discussing your fall risks and making a personalized fall prevention plan. Checking in regularly to see if you need help. Placing an arm band on your wrist or a sign near your room to alert other staff of your needs. Using an alarm on your hospital bed. This is an alarm thatgoes off if you get out of bed and forget to call for help. Keeping the bed in a low and locked position. Keeping the area around the bed and bathroom well-lit and free from clutter. Keeping your room quiet, so that you can sleep and be well-rested. Using safety equipment, such as: A belt around your waist. Walkers, crutches, and other devices for support. Safety beds, such as low beds or cushions on the floor next to the bed. Having a staff person stay with you (one-on-one observation), even when you are using the bathroom. This is for your safety. Using video monitoring. This allows a staff member to come to help you if you need help.What other actions can I take to lower my risk of falls? Check in regularly with your health care provider or pharmacist to review all of the medicines that you take. Make sure that you have a regular exercise program to stay fit. This will help you maintain your balance. Talk with a physical therapist or skills trainer if recommendedby your health care provider. They can help you to improve your strength, balance, and endurance.If you are over age 65: Ask your health care provider if you need a calcium or vitamin D supplement. Have your eyes and hearing checked every year. Have your feet checked every year.Where to find more informationYou can find more information about fall prevention from the Centers for Disease Control and Prevention: www.cdc.gov/steadiSummary Being in an unfamiliar environment, such as the hospital, increases your risk for falling. If you have been asked to call for help when getting up, do not get up by yourself. Asking for help with getting up is for your safety, and the staff is there to help you. Ask about which fall prevention strategies will be in place. Do not hesitate to spe ak up if you notice that the fall prevention plan has changed. If you or a loved one falls, tell the hospital staff. This is important.This information is not intended to replace advice given to youby your health care provider. Make sure you discuss any questions you have with your health care provider.Document Released: 04/15/2001 Document Revised: 11/30/2017 Document Reviewed: 11/30/2017Elsevier Interactive Patient Education ? 2020 [employer].02/11/2020 11:08:12Acute Pain, AdultAcute Pain, AdultAcute pain is a type of pain that may last for just a few days or as long as six months. It is often related to an illness, injury, or medical procedure. Acute pain may be mild, moderate, or severe.It usually goes away once your injury has healed or you are no longer ill.Pain can make it hard for you to do daily activities. It can cause anxiety and lead to other problems if left untreated. Treatment depends on the cause and severity of your acute pain.Follow these instructions at home: Check your pain level as told by your health care provider. Take ynrg-xwd-fudwvsm and prescription medicines only as told by your health care provider. If you are taking prescription pain medicine: Ask your health care provider about taking a stool softener or laxative to prevent constipation. Donot stop taking the medicine suddenly. Talk to your health care provider about how and when to discontinue prescription pain medicine. If your pain is severe, do not take more pills than instructed by your health care provider. Do not take other cimy-fwn-jgmsqes pain medicines in addition to this medicine unless told by your health care provider. Do not drive or operate heavy machinery whiletaking prescription pain medicine. Apply ice or heat as told by your health care provider. These may reduce swelling and pain. Ask your health care provider if other strategies such as distraction, relaxation, or physical therapies can help your pain. Keep all follow-up visits as told by yourhealth care provider. This is important.Contact a health care provider if: You have pain that is not controlled by medicine. Your pain does not improve or gets worse. You have side effects from pain medicines, such as vomiting?or confusion.Get help right away if: You have severe pain. You have trouble breathing. You lose consciousness. You have chest pain or pressure that lasts for more than a few minutes. Along with the chest pain you may: Have pain or discomfort in one or both arms, your back, neck, jaw, or stomach. Have shortness of breath. Break out in a cold sweat. Feel nauseous. Become light-headed.These symptoms may represent a serious problem that is an e mergency. Do not wait to see if the symptoms will go away. Get medical help right away. Call your local emergency services (911 in the [place] Do not drive yourself to the hospital.This information is not intended to replace advice given to you by your health care provider. Make sure you discuss any questions you have with your health care provider.Document Released: 05/02/2016 Document Revised: 09/24/2016 Document Reviewed: 05/02/2016Delbert Interactive Patient Education ? 2019 [employer].02/11/2020 11:08:12Your Role in Safe Medication Use ([facility]) (Custom)Your Role in Safe Medication UseYou are part of your healthcare team and share the responsibility of safe medication use. The role of the health care practitioner and pharmacist is to decide which medicine is best for you by selecting the proper dose, dispensing correctly and labeling clearly. Your role is to take the medicine as prescribed and to learn as much as you can about why you are taking the medicine and what to expect from taking the medication.Points to remember:1. Take medications exactly as prescribed. Do not skip, reduce or stop doses unless your physician/provider tells you to do so.2. Keep medications in their original container if possible, if you place them in a medication organizer keep the original container.3.Do not share prescription medicine with others.4. Do not take any medications in a dark or poorly lit room.5. If you are not provided information about your medications, inform your health care provider.6. It is recommended that only one pharmacy be utilized in obtaining your medications.7. Keep an upto date medication list with you at all times, provide the list to those whom help in your medical care. If the medications are changed or stopped between visits to a health care provider make sure to remember to update your list. Do not forget to include over the counter medications, vitamins and herbal supplements.8. Contact your health care provider if you are concerned about any reaction to or adverse effects from your medications.9. Inform the health care provider of any allergies.10. Take all prescription and nonprescription medicines with you to all medical appointments or health care services. The most accurate medication list is obtained when the medication bottles or medication list is taken to each appointment or service.11. Read labels slowly and carefully. If the label instructions are different from what your health care provider instructed, confirm the correct instructions.12. Dont be afraid to ask questions if there is a difference in the shape or color of the medication between refills.13. Medications can have more than one name. Raise questions if you do not recognize the name of the medications.EbdhemxuKqnm03/12/2020 11:08:12Preventive Care 65 Years and Older, FemalePreventive Care 65 Years and Older, FemalePreventive care refers to lifestyle choices and visits with your health care provider that can promote health and wellness.What does preventive care include? A yearly physical exam. This is also called an annual well check. Dental exams once or twice a year. Routine eye exams. Ask your health care provider how often you should have your eyes checked. Personal lifestyle choices, including: Daily care of your teeth and gums. Regular physical activity. Eating a healthy diet. Avoiding tobacco and drug use. Limiting alcohol use. Practicing safe sex. Taking low-dose aspirin every day. Taking vitamin and mineral supplements as recommended by your health care provider.What happens during an annual well check?The services and screenings done by your health care provider during your annual well check will depend on your age, overall health, lifestyle risk factors, and family history of disease.CounselingYour health care provider mayask you questions about your: Alcohol use. Tobacco use. Drug use. Emotional well-being. Home and relationship well- being. Sexual activity. Eating habits. History of falls. Memory and ability to understand (cognition). Work and work environment. Reproductive health.ScreeningYou may have the following tests or measurements: Height, weight, and BMI. Blood pressure. Lipid and cholesterol levels. These may be checked every 5 years, or more frequently if you are over 50 years old. Skin check. Lung cancer screening. You may have this screening every year starting at age 55 if you have a 73-qzxr-tdcp history of smoking and currently smoke or have quit withinthe past 15 years. Colorectal cancer screening. All adults should have this screening starting atage 50 and continuing until age 75. You will have tests every 110 years, depending on your results and the type of screening test. People at increased risk should start screening at an earlier age. Screening tests may include: Guaiac-based fecal occult blood testing. Fecal immunochemical test(FIT). Stool DNA test. Virtual colonoscopy. Sigmoidoscopy. During this test, a flexible tube with a tiny camera (sigmoidoscope) is used to examine your rectum and lower colon. The sigmoidoscope is inserted through your anus into your rectum and lower colon. Colonoscopy. During this test, along, thin, flexible tube with a tiny camera (colonoscope) is used to examine your entire colon and rectum. Hepatitis C blood test. Hepatitis B blood test. Sexually transmitted disease (STD) te sting. Diabetes screening. This is done by checking your blood sugar (glucose) after you have noteaten for a while (fasting). You may have this done every 13 years. Bone density scan. This isdone to screen for osteoporosis. You may have this done starting at age 65. Mammogram. This may be done every 12 years. Talk to your health care provider about how often you should have regular mammograms.Talk with your health care provider about your test results, treatment options, and if necessary, the need for more tests.VaccinesYour health care provider may recommend certain vaccines, suchas: Influenza vaccine. This is recommended every year. Tetanus, diphtheria, and acellular pertussis (Tdap, Td) vaccine. You may need a Td booster every 10 years. Varicella vaccine. You may need this if you have not been vaccinated. Zoster vaccine. You may need this after age 60. Measles, mumps, and rubella (MMR) vaccine. You may need at least one dose of MMR if you were born in 1958 pater. You may also need a second dose. Pneumococcal 13-valent conjugate (PCV13) vaccine. One dose is recommended after age 65. Pneumococcal polysaccharide (PPSV23) vaccine. One dose is recommended after age 65. Meningococcal vaccine. You may need this if you have certain conditions. Hepatitis A vaccine. You may need this if you have certain conditions or if you travel or work in places where you may be exposed to hepatitis A. Hepatitis B vaccine. You may need this if you have certainconditions or if you travel or work in places where you may be exposed to hepatitis B. Haemophilus influenzae type b (Hib) vaccine. You may need this if you have certain conditions.Talk to your health care provider about which screenings and vaccines you need and how often you need them.This informa tion is not intended to replace advice given to you by your health care provider. Make sure you discuss any questions you have with your health care provider.Document Released: 05/14/2016 Document Revised: 06/08/2018 Document Reviewed: 02/17/2016[employer] Interactive Patient Education ? 2019 [employer].02/11/2020 11:08:12Preventing Surgical Site Infections ([facility]) (Custom)PREVENTING SURGICAL SITE INFECTIONSWhat can you do?Hand HygieneWashing your hands or using an alcohol gel is the number one way to prevent infection.Always wash your hands or use an alcohol hand rub before you touch the surgical site. Make sure anyone else does the same before touching the surgical site.Caring for your surgical siteCare of your surgical site continues after you go home. There are some simple things that you can do to help prevent infection at your surgical site. Anyone who touches the surgical site, including yourself and healthcare providers, should wash hands, or use an alcohol hand rub, before and after touching the surgical site Cleanse the wound according to your doctors instructions. Do not remove the dressing unless your doctor has instructed you to do so. Avoid tub baths, soaking in water, or swimming until your surgeon tells you it is OK. Do not allow your pet to sit orlie on the surgical site. Make sure you are eating nutritiously. Stop tobacco use. Place clean linen where you will be sleeping. Keep the wound clean and dry.Report any redness or drainage to your surgeon immediately.[facility]01/28/2020 11:58:18With: Giancarlo Christyddress: [address] [address]- Business (1)When: 03/10/2020 10:45:00With: Vahid FarooqAddress: [facility] [address] [place] [address]- Business (1)When: 02/20/2020 08:15:00With: Robert HudsonAddress: [facility] [address] [place] [address]- Business (1)When: 02/19/2020 11:30:00With: Outpatient Physical TherapyAddress: [address] [address]- [phone]: 02/26/2020 14:15:00Patient Gcszfqhoa67/28/2020 09:15:53Walker Use ([id number])Walker UseHOW TO TELL IF A WALKER IS THE RIGHT SIZE With your arms hanging at your sides, the walker handles should be at wrist level. If you cannot find the exact fit, choose the height that is most comfortable. If you have been instructed to not place weight on one of your legs, you may feel more comfortable with a shorter height. If you are using the walker for balance, you may prefer a taller height. Adjust the height by usingthe push buttons on the legs of your walker. In rest position, the back leg of the walkers should be no further ahead than your toes. With your hands resting on the diesel engine ii pipe fitter, your elbows should be slightly bent at about a 30 degree angle. Ask your physical therapist or caregiver if you have anyconcerns. HOW TO USE A STANDARD WALKER (NO WHEELS) Pick your walker up (do not slide your walker) and place it one step length in front of you. The back legs of the walker should be no further ahead than your toes. You should not feel like you need to lean forward to keep your hands on the diesel engine ii pipe fitter. As you set the walker down, make sure all 4 leg tips contact the ground at the same time. Hold onto the walker for support and step forward with your weaker leg into the middle of the walker. Followthe weight bearing instructions your caregiver has given you. Push down with your hands and step forward with your stronger leg. Be careful not to let the walker get too far ahead of you as you walk. Repeat the process for each step. HOW TO USE A FRONT-WHEELED WALKER Slide your walker forward. The back legs of the walker should be no further ahead than your toes. You should not feel like you need to lean forward to keep your hands on the diesel engine ii pipe fitter. Hold onto the walker for support and step forward with your weaker leg into the middle of the walker. Follow the weight bearing instructions your caregiver has given you. Push down with your hands and step forward with your stronger leg. Be careful not to let the walker get too far ahead of you as you walk. Repeat the process for each step. If your walker does not glide well over carpet, consider cutting an "x" in 2 old tennis balls and placing them over the back legs of your walker. STANDING UP FROM A CHAIR WITH ARMRESTS It is best to sit in a firm chair with armrests. Position your walker directly in front of your chair. Do not pull on the walker when standing up. It is too unstable to support weight when pulled on. Slide forward in the chair, with your weaker leg ahead and stronger leg bentnear the chair. Lean forward and push up from your chair with both hands on the armrests. Straig hten your stronger leg, rising to standing. Do not pull yourself up from the walker. This may cause it to tip. When you feel steady on your feet, carefully move one hand at a time to the walker. Stand for a few seconds to stabilize your balance before you start to walk. STANDING UP FROM A CHAIR WITHOUT ARMRESTS It is best to sit in a firm chair. A low seat or an overstuffed chair or sofa is hard to get out of. Place the walker in front of you. Do not pull on the walker when coming to a standing position. Slide forward in the chair, with your weaker leg ahead and stronger leg bent near the chair. Push down on the chair seat with the hand opposite your weaker leg. Keep your other hand on the center of the walker's crossbar. Stand, steady your balance, and place yourhands on the walker handgrips. SITTING DOWN Always back up toward your chair, using your walker,until you feel the back of your legs touch the chair. If the chair has armrests, carefully reach back to put your hands on the armrests, and slowly lower your weight. If the chair does not have armrests, consider backing up to the side of the chair. You can then hold onto the back of the chair and the front of the seat to slowly lower yourself. You should never feel like you are falling into your chair. USING A WALKER ON STEPS Before attempting to use your walker on steps, practice with your physical therapist. If you are going up a step wide enough to accommodate the entirewalker and yourself: First, place the walker up on the step. Second, get your feet as close to the step as you can. Third, press down on the walker with your hands as you step up with your stronger leg. Then step up with your weaker leg. If you are going down a step wide enoughto accommodate the entire walker and yourself: First, place the walker down on the step. Second, hold onto the walker as you step down with your weaker leg. Then step down with your stronger leg. If you are going up more than 1 step and have a railing: First, turn the walker sideways, so the opening is facing in toward you. Second, place the front 2 legs of the walker onthe first step. These front legs should be positioned at the base of the next step. Third, test the steadiness of the walker. It should feel sturdy when you press down on the handgrip that is facing the top of the steps. Finally, placing your weight on the railing and the walker, step up with your stronger leg first. Then step up with your weaker leg. If you are going down more than 1 step and have a railing: First, turn the walker sideways, so the opening is facing in toward you. Second, place the front 2 legs of the walker down on the first step. When possible, the back legs of the walker should be positioned at the base of the previous step. Third, test the steadiness of the walker. It should feel sturdy when you press down on the handgrip that is facing the top of the steps. Finally, placing your weight on the railing and the walker, step down with your weaker leg first. Then step down with your stronger leg. Be sure to check the sturdiness of the walker before each step. Make sure you have good rubber tips on the legs of your walker to prevent it from slipping. Document Released: 04/18/2006 Document Revised: 07/10/2012 Document Reviewed:10/26/2011ExitCare? Patient Information ?2014 [employer].01/28/2020 09:15:53Venous Thromboembolism PreventionVenous Thromboembolism PreventionVenous thromboembolism (VTE) is a condition in which a blood clot (thrombus) develops in the body. A thrombus usually occurs in a deep vein in the leg or thepelvis (DVT), but it can also occur in the arm. Sometimes, pieces of a thrombus can break off from its original place of development and travel through the bloodstream to other parts of the body. When that happens, the thrombus is called an embolus. An embolus that travels to one or both lungs is called a pulmonary embolism. An embolism can block the blood flow in the blood vessels of other organs aswell.VTE is a serious health condition that can cause disability or . It is very important to get help right away and to not ignore symptoms.How can a VTE be prevented? Exercise regularly. Takea brisk 30 minute walk every day. Staying active and moving around can help you to prevent blood clots. Avoid sitting or lying in bed for long periods of time without moving your legs. Change your position often, especially during long-distance travel (over 4 hours). If you are a woman who is over 35 years of age, avoid unnecessary use of medicines that contain estrogen. These include control pills and hormone replacement therapy. Do not smoke, especially if you take estrogen medicines. If you need help quitting, ask your health care provider. Eat plenty of fruits and vegetables. Ask your health care provider or dietitian if there are foods that you should avoid. Maintain a weight that is appropriate for your height. Ask your health care provider what weight is healthy for you. Wear loose-fitting clothing. Avoid constrictive or tight clothing around your legs or waist.Try not to bump or injure your legs. Avoid crossing your legs when you are sitting. Do not use pillows under your knees while lying down unless told by your health care provider. Wear support hose (compression stockings or NICK hose) as told by your health care provider. Compression stockings increase blood flow in your legs and can help prevent blood clots. Do not let them bunch up when you arewearing them.How can I prevent VTE when I travel?Long-distance travel (over 4 hours) can increase the risk of a VTE. To prevent VTE when traveling: Exercise your legs every hour by standing, stretching, and bending and straightening your legs. If you are traveling by airplane, train, or bus, walk up and down the aisle as often as possible to get your blood moving. If you are traveling by car, stopand get out of the car every hour to exercise your legs and stretch. Other types of exercise might include: Keeping your feet flat on the ground and raising your toes. Switching from tightening the muscles in your calves and thighs to relaxing those same muscles while you are sitting. Pointing and flexing your feet at the ankle joints while you are sitting. Stay well hydrated while traveling. Drink enough water to keep your urine clear or pale yellow. Avoid drinking alcohol during long travel.Generally, it is not recommended that you take medicines to prevent DVT during routine travel.How can VTE be prevented if I am hospitalized?A VTE may be prevented by taking medicines that are prescribed to prevent blood clots (anticoagulants). You can also help to prevent VTE while in the hospital by taking these actions: Get out of bed and walk. Ask your health care provider if this is safe for you to do. Request the use of a sequential compression device (SCD). This is a machine thatpumps air into compression sleeves that are wrapped around your legs. Request the use of compression stockings, which are tight, elastic stockings that apply pressure to the lower legs. Compression stockings are sometimes used with SCDs.How can I prevent VTE after surgery?Understand that there is an increased risk for VTE for the first 46 weeks after surgery. During this time: Avoid long-distance travel (over 4 hours). If you must travel during this time, ask your health care provider aboutadditional preventive actions that you can take. These might include exercising your arms and legs every hour while you travel. Avoid sitting or lying still for too long. If possible, get up and walk around one time every hour. Ask your health care provider when this is safe for you to do.Get help right away if: You have new or increased pain, swelling, or redness in an arm or leg. You have numbness or tingling in an arm or leg. You have shortness of breath while active or at rest. You have chest pain. You have a rapid or irregular heartbeat. You feel light-headed or dizzy. You cough up blood. You notice blood in your vomit, bowel movement, or urine.These symptoms may represent a serious problem that is an emergency. Do not wait to see if the symptoms will go away. Get medical help right away. Call your local emergency services (911 in the [place] Do not drive yourself to the hospital.This information is not intended to replace advice given to you by your health care provider. Make sure you discuss any questions you have with your health care provider.Document Released: 04/06/2010 Document Revised: 12/02/2017 Document Reviewed: 08/13/2015Elsevier Interactive Patient Education ? 2019 [employer].01/28/2020 09:15:53Preventing Surgical Site Infections ([facility]) (CUSTOM)PREVENTING SURGICAL SITE INFECTIONSWhat can you do?Hand HygieneWashing your hands or using an alcohol gel is the number one way to prevent infection.Always wash your hands or use an alcohol hand rub before you touch the surgical site. Make sure anyone else does the same before touching the surgical site.Caring for your surgical siteCare of your surgical site continues after you go home. Thereare some simple things that you can do to help prevent infection at your surgical site. Anyone who touches the surgical site, including yourself and healthcare providers, should wash hands, or use an alcohol hand rub, before and after touching the surgical site Cleanse the wound according to your doctors instructions. Do not remove the dressing unless your doctor has instructed you to do so. Avoid tub baths, soaking in water, or swimming until your surgeon tells you it is OK. Do not allow your pet to sit or lie on the surgical site. Make sure you are eating nutritiously. Stop tobacco use. Place clean linen where you will be sleeping. Keep the wound clean and dry.Report any redness or drainage to your surgeon immediately.VwqwkclrAvio94/28/2020 09:15:53Preventing Constipation After SurgeryPreventing Constipation After SurgeryConstipation is a common problem after surgery. Many things can make constipation more likely after a surgery, including: Certain medicines,especially numbing medicines (anesthetics) and very strong pain medicines called opioids. Feelingstressed because of the surgery. Eating different foods than normal. Being less active.Symptoms of constipation include: Having fewer than three bowel movements a week. Straining to have a bowel movement. Having hard, dry, or rwxmsk-lqmr-kqctzy stools. Feeling full or bloated. Having pain in the lower abdomen. Not feeling relief after having a bowel movement.You can take stepsto help prevent constipation after surgery.Follow these instructions at home:Eating and drinking Eat foods that have a lot of fiber in them. These include fresh fruits and vegetables, whole grains, and beans. Limit foods that are high in fat and processed sugars, such as fried and sweet foods. These include sammarinese fries, hamburgers, cookies, and candy. Take a fiber supplement as told by yourhealth care provider. If you are not taking a fiber supplement and you think you are not getting enough fiber from foods, talk to your health care provider about adding a fiber supplement to your diet. Drink enough fluid to keep your urine pale yellow. Drink clear fluids, especially water. Avoiddrinking alcohol, caffeine, and soda. These can make constipation worse.Activity After surgery, return to your normal activities slowly, or when your health care provider says it is okay. Start walking as soon as you can. Try to go a little farther each day. Once your health care provider appr oves, do some sort of regular exercise. This helps prevent constipation.Bowel movements Go to therestroom when you have the urge to go. Do not hold it in. Try drinking something hot to get a bowel movement started. Keep track of how often you use the restroom.Medicine Take kuap-gxq-lmcrenh and prescription medicines only as told by your health care provider. Talk to your health care provider about medicines that may help prevent constipation, particularly if you have a history of constipation. Your health care provider may suggest a stool softener, laxative, or fiber supplement. Do not take any medicines without talking to your health care provider first.Contact a health care provider if: You used stool softeners or laxatives and still have not had a bowel movement within 2448 hours after using them. You have not had a bowel movement in 3 days. You have a fever.Gethelp right away if: Your constipation lasts for more than 4 days or gets worse. You have bright red blood in your stool. You have pain in the abdomen or rectum. You have very bad cramping. You have thin, pencil-like stools. You have unexplained weight loss.Summary Constipation is a common problem after surgery. Many things can make constipation more likely after a surgery, including certain medicines, eating different foods than normal, and being less active. Symptoms of constipation include having fewer than three bowel movements a week, straining to have a bowel movement, pain in the lower abdomen, and feeling full or bloated. A diet rich in high-fiber foods, fluids, physical activity, and medicines, such as stool softeners and laxatives, can help prevent constipation. This information is not intended to replace advice given to you by your health care provider. Make sure you discuss any questions you have with your health care provider.Document Released: 08/13/2013 Document Revised: 07/18/2017 Document Reviewed: 07/18/2017Elsevier Interactive Patient Education ? 2019 [employer].01/28/2020 09:15:53Hip FractureHip FractureA hip fracture is a break in the upper partof the thigh bone (femur). This is usually the result of an injury, commonly a fall.What are the causes?This condition may be caused by: A direct hit or injury (trauma) to the side of the hip, such as from a fall or a car accident.What increases the risk?You are more likely to develop this condition if: You have poor balance or an unsteady walking pattern (gait). Certain conditions contribute to poor balance, including Parkinson disease and dementia. You have thinning or weakening of your bones, such as from osteopenia or osteoporosis. You have cancer that spreads to the leg bones. You have certain conditions that can weaken your bones, such as thyroid disorders, intestine disorders, or a lack (deficiency) of certain nutrients. You smoke. You take certain medicines, such as steroids. You have a history of broken bones.What are the signs or symptoms?Symptoms of this condition include: Pain over the injured hip. This is commonly felt on the side of the hip or in the front groin area. Stiffness, bruising, and swelling over the hip. Pain with movement of the leg, especially lifting it up. Pain often gets better with rest. Difficulty or inability to stand, walk,or use the leg to support body weight (put weight on the leg). The leg rolling outward when lyingdown. The affected leg being shorter than the other leg.How is this diagnosed?This condition may be diagnosed based on: Your symptoms. A physical exam. X-rays. These may be done: To confirm the diagnosis. To determine the type and location of the fracture. To check for other injuries. MRI or CT scans. These may be done if the fracture is not visible on an X-ray.How is this treated?Treatment for this condition depends on the severity and location of your fracture. In most cases, surgery is necessary. Surgery may involve: Repairing the fracture with a screw, nail, or inna tohold the bone in place (open reduction and internal fixation, ORIF). Replacing the damaged parts of the femur with metal implants (hemiarthroplasty or arthroplasty).If your fracture is less severe, or if you are not eligible for surgery, you may have non-surgical treatment. Non-surgical treatment may involve: Using crutches, a walker, or a wheelchair until your health care provider says that you can support (bear) weight on your hip. Medicines to help reduce pain and swelling. Having regular X-rays to monitor your fracture and make sure that it is healing. Physical therapy. You may need physical therapy after surgery, too.Follow these instructions at home:Activity Do not use yourinjured leg to support your body weight until your health care provider says that you can. Followstanding and walking restrictions as told by your health care provider. Use crutches, a walker, or a wheelchair as directed. Avoid any activities that cause pain or irritation in your hip. Ask your health care provider what activities are safe for you. Do not drive or use heavy machinery until your health care provider approves. If physical therapy was prescribed, do exercises as told by your health care provider.General instructions Take cduf-clz-sifqrlh and prescription medicines only as told by your health care provider. If directed, put ice on the injured area: Put ice in aplastic bag. Place a towel between your skin and the bag. Leave the ice on for 20 minutes, 23 times a day. Do not use any products that contain nicotine or tobacco, such as cigarettes and e-cigarettes. These can delay bone healing. If you need help quitting, ask your health care provider. Keep all follow-up visits as told by your health care provider. This is important.How is this prevented? To prevent falls at home: Use a cane, walker, or wheelchair as directed. Make sure your rooms and hallways are free of clutter, obstacles, and cords. Install grab bars in your bedroomand bathrooms. Always use handrails when going up and down stairs. Use nightlights around the house. Exercise regularly. Ask what forms of exercise are safe for you, such as walking and strength and balance exercises. Visit an eye doctor regularly to have your eyesight checked. This can help prevent falls. Make sure you get enough calcium and vitamin D. Do not use any products that contain nicotine or tobacco, such as cigarettes and e-cigarettes. If you need help quitting, ask yourhealth care provider. Limit alcohol use. If you have an underlying condition that caused your hip fracture, work with your health care provider to manage your condition.Contact a health care provider if: Your pain gets worse or it does not get better with rest or medicine. You develop any of the following in your leg or foot: Numbness. Tingling. A change in skin color (discoloration). Skin feeling cold to the touch.Get help right away if: Your pain suddenly gets worse. You cannot move your hip.Summary A hip fracture is a break in the upper part of the thigh bone (femur). Treatment typically require surgical management to restore stability and function to the hip. Pain medicine and icing of the affected leg can help manage pain and swelling. Follow directionsas told by your health care provider.This information is not intended to replace advice given to youby your health care provider. Make sure you discuss any questions you have with your health care provider.Document Released: 04/18/2006 Document Revised: 01/06/2019 Document Reviewed: 05/21/2017[employer] Interactive Patient Education ? 2019 [employer].01/28/2020 09:15:53Pain Medicine Instructions, Wctp-ev-YhsiNrdm Medicine InstructionsYou may need pain medicine after an injury or illness. Two commontypes of pain medicine are: Opioid pain medicine. These may be called opioids. Non-opioid painmedicine. This includes NSAIDs.It is important to follow your doctor's instructions when you are taking pain medicine. Doing this can keep yourself and others safe.How can pain medicine affect me?Pain medicine may not make all of your pain go away. It should make you comfortable enough to: Move.Breathe. Do normal activities.Opioids can cause side effects, such as: Trouble pooping (constip ation). Feeling sick to your stomach (nausea). Throwing up (vomiting). Feeling very sleepy. Confusion. Taking the medicine for nonmedical reasons even though taking it hurts your health and well-being (opioid use disorder). Trouble breathing (respiratory depression).Taking opioids for longer than 3 days raises your risk of these side effects.Taking opioids for a long time can affecthow well you can do daily tasks. Taking them for a long time also puts you at risk for: Car crashes. Depression. Suicide. Heart attack. Taking too much of the medicine (overdose). This can lead to .What should I do to stay safe while taking pain medicine?Take your medicine as told Take pain medicine exactly as told by your doctor. Take it only when you need it. Write down the times when you take your pain medicine. Look at the times before you take your next dose. Take other ynil-hih-ghaqfxn or prescription medicines only as told by your doctor. If your pain medicine has acetaminophen in it, do not take any other acetaminophen while you are taking this medicine. Too much can damage the liver. Get pain medicine prescriptions from only one doctor.Avoid certain activitiesWhile you are taking prescription pain medicine, and for 8 hours after your last dose: Do not drive. Do not use machinery. Do not use power tools. Do not sign legal documents. Do not drink alcohol. Do not take sleeping pills. Do not take care of children by yourself. Do not do any activities that involve climbing or being in high places. Do not go into any body of water unless there is an adult nearby who can watch you and help you if needed. This includes: Lakes. [place]. Oceans. Spas. Swimming pools.Keep others safe Store your medicine as told byyour doctor. Keep it where children and pets cannot reach it. Do not share your pain medicine with anyone. Do not save any leftover pills. If you have leftover pills, you can: Bring them to a take-back program. Bring them to a pharmacy that has a drug disposal container. Throw them in the trash. Check the medicine label or package insert to see if it is safe to throw it out. If it is safe, take the medicine out of the container. Mix it with something that makes it unusable, such as pet waste. Then put the medicine in the trash.General instructions Talk with your doctor about otherways to manage your pain. If you have trouble pooping: Drink enough fluid to keep your pee (urine) pale yellow. Use a poop (stool) softener as told by your doctor. Eat more fruits and vegetables. Keep all follow-up visits as told by your doctor. This is important.Contact a doctor if:Your medicine is not helping with your pain. You have a rash. You feel depressed.Get help right away if:Seek medical care right away if you are taking pain medicines and you (or people close to you) notice any of the following: Trouble breathing. Breathing that is shorter than normal. Br eathing that is more shallow than normal. Confusion. Sleepiness. Trouble staying awake. Feeling sick to your stomach. Throwing up. Your skin or lips turning pale or bluish in color. Tongue swelling.If you ever feel like you may hurt yourself or others, or have thoughts about taking your own life, get help right away. Go to your nearest emergency department or call: Your local emergency services (911 in the [place] A suicide crisis helpline, such as the National Suicide Prevention Lifeline at . This is open 24 hours a day.Summary Take your pain medicine exactly as told by your doctor. Pain medicine can help lower your pain. It may also cause side effects. Talk with your doctor about other ways to manage your pain. Follow your doctor's instructions about how to take your pain medicine and keep others safe. Ask what activities you should avoid while taking pain medicine.This information is not intended to replace advice given to you by your health care provider. Make sure you discuss any questions you have with your health care provider.DocumentReleased: 10/04/2008 Document Revised: 11/28/2017 Document Reviewed: 11/28/2017Elsevier Interactive Patient Education ? 2019 [employer].01/28/2020 09:15:53[place] [place] Patient Safety: A Guide to Prev enting Falls at Home (CUSTOM)[facility] Patient InformationPatient Safety: A Guide to Preventing Falls at HomeThe [facility] Patient InformationOriginal Date: 11/18/05 Revised date: 12/22/10Patient Safety: A Guide to Preventing Falls At Home Why is it important to prevent falls?Falls and the complications associated with falls are one of the most serious health problems facing the elderly. Preventing a fall is important to maintaining an active and independent lifestyle.Who is at risk for falls?Anyone can fall. No one wants to fall. Falls can occur in any age group; at any time and at any place. A fall can be a very serious and life threatening event for any person age 64 or older.Why do people fall?An unsafe environment may cause falls. An illness or physical condition may affect your strength and balance, making you more likely to fall. Some environmental factors that maycause falls are: Wet floors Loose carpets, tiles and throw rugs Equipment in halls or walkways Poor lighting Waxed floors Poor fitting or inadequate footwear Inappropriate use of assistive devices, canes, walkers, andwheelchairs Any other object at the floor level that a personcan trip or slip onWhat illnesses or conditions make you unsteady on your feet or at risk for injurydue to fall?Illness or conditions that may make you unsteady on your feet are: Poor vision/hearing Poor gait/mobility Muscle weakness Incontinence Syncope (dizziness) Low blood pressureLow blood sugar Seizures Poor nutrition/dehydration Medication reactions At risk for bleeding At risk for fractures Advanced age (>80)Standard [place] Order Number - [id number] [facility] Patient InformationOriginal Date: 11/18/05 Revised date: 12/22/10Patient Safety: A Guide to Preventing Falls At Home What should I tell my doctor? See your doctor as prescribed. See your eye doctor yearly. Tell your doctor if you have fallen and describe the circumstancesofthef all(s). Tell your doctor if you use any walker aids, such as a cane or awalker. Tell your doctor about any vision problems and any other medicalproblems you may have. Tell you doctor if you have any side effects from yourmedications. Take good care of your feet. Let your doctor know if you are taking laxatives.How can I make home safe? When getting out of bed, sit on the side of thebed before standingup. Place grab bars securely mounted in bathrooms around toilets,bath tubs, and shower areas. Place hand rails on both sides of stairwells. Make sure your home is well lit. Use night- lights in the bedroom, bathroom, hallways andstairways. Remove throw rugs, or fasten them to the floor carpet tape. Tack down carpet edges. Remove loose tiles. Remove electricalcords from pathways.Be sure to tell your doctor about all medications you are taking.Adapted from: Preventing Falls: Instructions for Patients and Families; [facility], September 2000 A Patient's Guide to Preventing Falls, The [employer] SocietyStandard [place] Order Number - [id number] 09:15:53Incision Care, Adult, Tfvb-un-TzipHaisgcdj Care, AdultAn incision is a cut that a doctor makes in your skin for surgery (for a procedure). Most times, these cuts are closed after fahad lisa. Your cut from surgery may be closed with stitches (sutures), hailee, skin glue, or skin tape (adhesive strips). You may need to return to your doctor to have stitches or hailee taken out. This may happen many days or many weeks after your surgery. The cut needs to be well cared for so it does not get infected.How to care for your cutCut care Follow instructions from your doctor about how to take care of your cut. Make sure you: Wash your hands with soap and water before you change yourbandage (dressing). If you cannot use soap and water, use hand hide splitter. Change your bandage as told by your doctor. Leave stitches, skin glue, or skin tape in place. They may need to stay in place for 2 weeks or longer. If tape strips get loose and curl up, you may trim the loose edges. Do notremove tape strips completely unless your doctor says it is okay. Check your cut area every day for signs of infection. Check for: More redness, swelling, or pain. More fluid or blood. Warmth. Pus or a bad smell. Ask your doctor how to clean the cut. This may include: Using mild soap and water. Using a clean towel to pat the cut dry after you clean it. Putting a cream or ointment on the cut. Do this only as told by your doctor. Covering the cut with a clean bandage. Ask your doctor when you can leave the cut uncovered. Do not take baths, swim, or use a hot tub until your doctor says it is okay. Ask your doctor if you can take showers. You may only be allowed to take sponge baths for bathing.Medicines If you were prescribed an antibiotic medicine, cream, or ointment, take the antibiotic or put it on the cut as told by your doctor. Do not stop taking or putting on the antibiotic even if your condition gets better. Take vkfr-qcp-lmmoedb and prescription medicines only as told by your doctor.General instructions Limit movement around your cut. This helps healing. Avoid straining, lifting, or exercise for the first month, or for as long as told by your doctor. Follow instructions from your doctor about going back to your normal activities. Askyour doctor what activities are safe. Protect your cut from the sun when you are outside for the first 6 months, or for as long as told by your doctor. Put on sunscreen around the scar or cover up the scar. Keep all follow-up visits as told by your doctor. This is important.Contact a doctor if: Your have more redness, swelling, or pain around the cut. You have more fluid or blood coming from the cut. Your cut feels warm to the touch. You have pus or a bad smell coming from the cut. You have a fever or shaking chills. You feel sick to your stomach (nauseous) or you throw up (vomit). You are dizzy. Your stitches or hailee come undone.Get help right away if: You havea red streak coming from your cut. Your cut bleeds through the bandage and the bleeding does not stop with gentle pressure. The edges of your cut open up and separate. You have very bad (severe) pain. You have a rash. You are confused. You pass out (faint). You have trouble breathing and you have a fast heartbeat.This information is not intended to replace advice given to you by your health care provider. Make sure you discuss any questions you have with your health care provider.Document Released: 07/10/2012 Document Revised: 12/24/2016 Document Reviewed: 12/24/2016[employer]ore[employer]isha Interactive Patient Education ? 2019 [employer].01/28/2020 09:15:53How to Use Cold Therapy, Ozow-nx-XpjjXen to Use Cold TherapyCold therapy, or cryotherapy, is a treatment that uses cold temperatures totreat an injury or medical condition. It includes using cold packs or ice packs to reduce pain and sw elling. Only use cold therapy if your doctor says it is okay.What are the risks?Generally, cold therapy is a safe treatment. However, it is not safe for: People who are not able to say they are in pain. These include small children and people who have memory problems. People who have certain cond itions, such as: A problem in the vessels that slows blood flow to the fingers and toes (Raynaud's syndrome). Feeling very cold easily (cold hypersensitivity). Lack of feeling in the area being iced.Cold therapy may not be safe for people who have other conditions. Do not use it without talking to your doctor if you have: A heart condition. High blood pressure. Open or healing wounds. An infection. Pain and swelling in your joints (rheumatoid arthritis). Poor blood flow in the body. Diabetes. Certain skin conditions.How can I make a cold pack?When using a cold packat home to reduce pain and swelling, you can use: A silica gel cold pack that has been left in the freezer. You can buy this online or in stores. A sealable plastic bag that has been filled with crushed ice. A washcloth or paper towels soaked in cold (or ice) water. A plastic bag of frozenvegetables. Throw them away when you are finished using them as a cold pack.Supplies needed: A cold pack. A towel. This can be dry or damp, based on what you like.How to use cold therapy1. Have your cold pack ready.2. Place a towel between the cold pack and your skin. You may also wrap the cold pack in a towel.3. Put the cold pack on the affected area. Keep it on for no more than 20 minutes at a time.4. Check your skin after 5 minutes to make sure that there is no damage to the area. Check for: White spots on your skin. Your skin may look blotchy or mottled. Skin that looks blue or pale. Skin that feels waxy or hard.5. Repeat these steps as many times each day as told by your doctor.Always use a towel to avoid direct contact with your skin.Contact a doctor if: You start to have white spots on your skin. This may give your skin a blotchy or mottled look. Your skin turns blue or pale. Your skin becomes waxy or hard. Your swelling gets worse.Summary Cold therapy, or cryotherapy, is used to treat an injury or other conditions. It includes using cold packs or ice packsto reduce pain and swelling. Cold therapy is not safe for people who are not able to say they arein pain. When using cold packs or ice packs, always place a towel between the cold source and your skin. Check your skin after 5 minutes of icing it. This is to make sure that there is no skin damage. Contact your doctor if you notice changes in your skin or your swelling gets worse.This information is not intended to replace advice given to you by your health care provider. Make sure you discuss any questions you have with your health care provider.Document Released: 10/04/2008 Document Revised: 01/15/2019 Document Reviewed: 01/15/2019Elsevier Interactive Patient Education ? 2020 [employer].01/28/2020 09:15:53Hand WashingHand WashingGerms such as bacteria, viruses, and parasites are found everywhere. They can be in the air and water, and they can be on surfaces like food, door handles, and your skin. Every day, your hands come into contact with germs. Many of these germs can make youand your family sick. Washing your hands is one of the easiest and most effective ways to lower yourrisk of getting and sharing germs.When should I wash my hands?You should wash your hands whenever you think they are dirty. You should also wash your hands: Before: Visiting a baby or anyone witha weakened disease-fighting system (immunesystem). Putting in or taking out contact lenses. After: Using the bathroom or helping someone else use the bathroom. Working or playing outside. Touching or taking out the garbage. Touching anything dirty around your home. Sneezing, coughing, or blowing your nose. Using a phone, including your mobile phone. Touching an animal, animal food, animal waste, or its toys or leash. Touching money. Using household certified coatings inspector or toxic chemicals. Handling soiled clothes, bedding, or rags. Using public transportation. Going shopping, especially if you use a shopping cart or basket. Shaking hands. Handling livestock. Before and after: Preparing food. Eating. Visiting or taking care of someone who is sick. This includes touching used tissues, toys, and clothes. Changing a bandage (dressing) or taking care of an injury or wound. Giving or taking medicine. Preparing a bottle for a baby. Feeding a baby or young child. Changing a diaper.What is the correct way to wash my hands?1. Wet your hands with clean, running water. Turn off the water or move your hands out of the running water.2. Apply liquid soap or bar soap to your hands.3. Rub your hands together quickly to create lather.4. Keep rubbing your hands together for at least 20 seconds. Thoroughly scrub all parts of your hands, including under your fingernails and between your fingers.5. Rinse your hands with clean, running water until allthe soap is gone.6. Dry your hands using an air dryer or a clean paper or cloth towel, or let your hands air-dry. Do not use your clothing or a soiled towel to dry your hands.If you are in a public restroom, use a paper towel: To turn off the water faucet. To open the bathroom door.How can I clean my hands if I do not have soap and water?If soap and clean water are not available, use an alcohol-based wipe, spray, or hand gel. Use a hand-sanitizing agent that contains at least 60% alcohol. If you are preparing food, hand sanitizers are not recommended as a replacement for hand washing with soap and water.To use a hand hide splitter, follow the directions on the product, and: Apply enough product to cover your hands. Make sure you wipe, rub, or spray the product so that it reaches every part of your hands and wrists. Include the backs of your hands, between your fingers, and under your fingernails. Rub the product onto your hands until it dries.Summary Germs such as bacteria, viruses, and parasites are found everywhere. Your hands come into contact with germs every day. Many of these germs can make you and your family sick. Washing your hands is one of the easiest and most ef fective ways to lower your risk of getting and sharing germs.This information is not intended to replace advice given to you by your health care provider. Make sure you discuss any questions you have with your health care provider.Document Released: 12/07/2005 Document Revised: 01/25/2018 Document Reviewed: 01/25/2018[employer] Interactive Patient Education ? 2019 [employer].01/28/2020 09:15:53Constipation, AdultConstipation, AdultConstipation is when a person has fewer bowel movements in a week than normal, has difficulty having a bowel movement, or has stools that are dry, hard, or larger than normal. Constipation may be caused by an underlying condition. It may become worse with age if a persontakes certain medicines and does not take in enough fluids.Follow these instructions at home:Eating and drinking Eat foods that have a lot of fiber, such as fresh fruits and vegetables, whole grains, and beans. Limit foods that are high in fat, low in fiber, or overly processed, such as sammarinese fries, hamburgers, cookies, candies, and soda. Drink enough fluid to keep your urine clear or pale yellow.General instructions Exercise regularly or as told by your health care provider. Go to the restroom when you have the urge to go. Do not hold it in. Take eeqf-ohz-jlowmjm and prescription medicines only as told by your health care provider. These include any fiber supplements. Practice pelvic floor retraining exercises, such as deep breathing while relaxing the lower abdomen and pelvic floor relaxation during bowel movements. Watch your condition for any changes. Keep all follow-up visits as told by your health care provider. This is important.Contact a health care provider if: You have pain that gets worse. You have a fever. You do not have a bowel movement after 4 days. You vomit. You are not hungry. You lose weight. You are bleeding from the anus. You have thin, pencil- like stools.Get help right away if: You have a fever and your symptoms sudd enly get worse. You leak stool or have blood in your stool. Your abdomen is bloated. You have severe pain in your abdomen. You feel dizzy or you faint.This information is not intended to replace advice given to you by your health care provider. Make sure you discuss any questions you have with your health care provider.Document Released: 01/14/2005 Document Revised: 11/05/2016 Document Reviewed: 10/06/2016[employer] Interactive Patient Education ? 2019 [employer].Follow Up Care01/21/202010:31:06With: Vahid FarooqAddress: UnknownWhen: UnknownComments: Call for follow up appointment at discharge from rehab
== END ==
LOC: EMPHEALTH 11:17
PROVIDERS: ATTEND Internal Medicine
DX: Z23 Encounter for immunization (principal)
CPT/HCPCS: 91300